=== PATIENT | female | born 1985 | race Caucasian/White ===

== ENCOUNTER → 2016-09-18 | Outpatient (CLI) | payer BC ==
[~2016-09-18] MED LIST: EPP3 IM; EPP3/2 IM; FERR1TAB13 PO; MISC-696; MTR600X PO; ONDA4TAB10 SL; OXYC-57 PO; PRENTAB26 PO; SIME80CH
== END | disposition home or self-care (01) ==
LOC: C.LAB1850 08:50
PROVIDERS: ATTEND Obstetrics & Gynecology
DX: O09.02 Supervision of pregnancy with history of infertility, second trimester (principal)

== ENCOUNTER → 2016-12-03 | Outpatient (CLI) | payer BC ==
[2016-12-03 11:53] LABS: MANUAL MICROSCOPIC REQUIRED? YES; URINE APPEARANCE CLEAR (CLEAR); URINE BILIRUBIN NEG (NEG); URINE COLOR YELLOW; URINE NITRITE NEG (NEG); URINE PH 5.5 (4.5-7.5); UROBILINOGEN NEG (NEG)
[2016-12-03 12:11] LABS: REVIEW REQ? NO
[2016-12-03 12:26] LABS: URINE BACTERIA 1+ (NEG); URINE RBC 0-4 /hpf (0-4)
[2016-12-03 13:57] LABS: HEMATOCRIT 30.4 % (37-47)
== END | disposition home or self-care (01) ==
LOC: C.LAB1850 08:56
PROVIDERS: ATTEND Obstetrics & Gynecology
DX: O34.219 Maternal care for unspecified type scar from previous cesarean delivery (principal); O09.03 Supervision of pregnancy with history of infertility, third trimester; O99.840 Bariatric surgery status complicating pregnancy, unspecified trimester

== ENCOUNTER 2016-12-16 18:58 | Observation (INO) | payer BC ==
[~2016-12-16] VITALS: Ht 162.6 cm; Wt 137.3 kg
[~2016-12-16 18:58] MED LIST changes: -EPP3/2 IM; -FERR1TAB13 PO; -MTR600X PO; -ONDA4TAB10 SL; -OXYC-57 PO; -SIME80CH
[2016-12-16 19:22] VITALS: TEMP 36.6; Ht 162.6 cm; Wt 137.3 kg
[2016-12-16] MEDS ORDERED: SODIUM CHLORIDE 0.9% 1000ML 2,000 ML IV STA (19:33)
[2016-12-16] MEDS ORDERED: EPP3/2 IM (19:35)
[2016-12-16] MEDS ORDERED: ONDANSETRON 8 MG/54 ML D5W IV STA (19:52)
[2016-12-16 20:28] LABS: HEMATOCRIT 31.5 % (37-47); MEAN CELL VOLUME 67.2 fL (80-100); MEAN CORPUSCULAR HEMOGLOBIN 21.5 pg (25-34); MEAN CORPUSCULAR HGB CONC 32.1 g/dl (32-36); MEAN PLATELET VOLUME 9.6 fL (7.4-10.4); PLATELET COUNT 319 K/uL (130-400); RED BLOOD COUNT 4.69 M/uL (4.2-5.4); WHITE BLOOD COUNT 13.07 K/uL (4.8-10.8)
[2016-12-16 20:44] LABS: ALT/SGPT 42 U/L (12-78); BLOOD UREA NITROGEN 5 mg/dl (7-18); BUN/CREATININE RATIO 7.7 (10-20); CALCIUM 8.8 mg/dl (8.5-10.1); CARBON DIOXIDE 19 mmol/L (21-32); CHLORIDE 106 mmol/L (98-107); GLUCOSE 93 mg/dl (70-99); POTASSIUM 2.9 mmol/L (3.5-5.1); SODIUM 136 mmol/L (136-145)
[2016-12-16 20:47] LABS: ALKALINE PHOSPHATASE 60 U/L (45-117); AST/SGOT 39 U/L (15-37); BASO % 0.2 %; BASO ABS # 0.02 K/uL (0-0.2); COMPLETE YES; EOS % 0.5 %; IG% 0.3 %; LYMPH % 22.8 %; LYMPH ABS # 2.98 K/uL (1.2-3.4); MICROCYTOSIS PRESENT; NEUT % 66.2 %
[2016-12-16 22:21] LABS: URINE APPEARANCE CLOUDY (CLEAR); URINE BILIRUBIN NEG (NEG); URINE COLOR DK YELLOW; URINE EPITHELIAL CELL AUTO >30 /lpf (0-5); URINE NITRITE NEG (NEG); URINE SPECIFIC GRAVITY 1.021 (1.000-1.030); UROBILINOGEN NEG (NEG)
[2016-12-16 22:25] LABS: MANUAL MICROSCOPIC REQUIRED? NO; REVIEW REQ? YES
[2016-12-16 22:35] LABS: URINE MUCUS PRESENT (NONE PRSENT)
[2016-12-16] MEDS ORDERED: CALCIUM CARBONATE 500 MG CHEWABLE PO STA (23:04)
[2016-12-17] MEDS ORDERED: POTASSIUM CHLORIDE 10 MEQ / 100ML WTR IV STA (00:16)
[2016-12-17] MEDS ORDERED: POTASSIUM CHLORIDE 10 MEQ TABCR PO STA (00:16)
[2016-12-17] MEDS ORDERED: ACETAMINOPHEN 500 MG TAB PO STA (00:18)
[2016-12-17 00:31] VITALS: BP 122/61; PULSE 88; O2SAT 98
[2016-12-17] MEDS ORDERED: LACTATED RINGER'S 1000ML 1,000 ML IV SCH (01:11)
[2016-12-17] MEDS ORDERED: ONDANSETRON INJ 2 MG/ML 2 ML VIAL IV PRN (01:15)
[2016-12-17] MEDS ORDERED: IV FLUIDS COMPLETED PRN (01:30)
--- NOTE | 2016-12-17 01:35 | EMERGENCY ROOM VISIT NOTE ---
History Report prepared by Esteban: Martha Chang Under the Supervision of: Dr. Carlos Hebert M.D. First contact with patient: 19:33 Chief Complaint: OTHER COMPLAINT Stated Complaint: DIARRHEA,DIZZINESS, PT IS 30 WEEKS History of Present Illness The patient is a 31 year old female who presents to the Emergency Room with complaints of persistent nausea, vomiting and diarrhea over the past 6 days. The patient is [address] Villaseñor - Obstetrics. The first two days of her symptoms, she had some abdominal pain which has since resolved. Se also complains of intermittent chills. She has not urinated in about 24 hours. She did notify her OB office of her symptoms. She has not taken any medications for her symptoms. Denies any vaginal bleeding or discharge. Pt denies LOC, headache, fevers, diaphoresis, visual changes, neck pain, chest pain , breathing difficulties, back pain, melena, hematochezia, urinary symptoms, numbness, weakness, lymphadenopathy, rash, or other complaints. Source of History: patient Onset: the past 6 days Position: other (GI) Quality: other (N/V/D) Timing: other (persistent) Associated Symptoms: + abdominal pain (resolved), + chills Review of Systems See HPI for pertinent positives and negatives. A total of ten systems were reviewed and were otherwise negative. Past Medical & Surgical Medical Problems: (1) 36 weeks gestation of (2) Bronchitis (3) Dyspnea (4) First-trimester bleeding (5) low heart rate in office (6) Ulcer Surgical Problems: (1) Cholecystectomy planned (2) H/O gastric bypass Family History Cancer Diabetes mellitus Hypertension Social History Smoking Status: Former Smoker Alcohol Use: none Marital Status: Housing Status: lives with significant other Occupation Status: employed Current/Historical Medications Scheduled Epinephrine (Epipen), 0.3 MG IM UD Multivit/Min/Iron/Fol Ac/Pren ( Vitamin), 1 TAB PO DAILY Allergies Coded Allergies: Latex1 -Allergic Contact Dermititis (Unverified Allergy, Mild, 12/16/16) Physical Exam Vital Signs Date Time Temp Pulse Resp B/P Pulse Ox O2 Delivery O2 Flow Rate FiO2 12/17/16 00:31 88 16 122/61 98 Room Air 12/16/16 22:21 83 20 135/82 97 Room Air 12/16/16 20:44 82 12/16/16 20:41 88 20 141/84 97 Room Air 12/16/16 19:22 36.6 106 20 137/88 97 Room Air Physical Exam GENERAL: Awake, alert, mildly ill appearing, no acute distress HEAD: Normocephalic, atraumatic. No edema. EYES: Normal conjunctiva. Sclera non-icteric. OROPHARYNX: Lips, tongue, and mucosa unremarkable. No erythema or exudate. NECK: Supple. No nuchal rigidity. FROM. No adenopathy. RESPIRATORY: CTA bilaterally. No wheezes rales or rhonchi. CARDIAC: Borderline tachycardic rate, normal rhythm. ABDOMEN: Soft, non distended. No tenderness to palpation. No rebound or guarding. MUSCULOSKELETAL: Atraumatic. No edema. NEURO: Normal sensorium. SKIN: No rash or jaundice noted Medical Decision & Procedures Laboratory Results 12/16/16 20:10 Red Blood Count 4.69, Mean Corpuscular Volume 67.2, Mean Corpuscular Hemoglobin 21.5, Mean Corpuscular Hemoglobin Concent 32.1, Mean Platelet Volume 9.6, Neutrophils (%) (Auto) 66.2, Lymphocytes (%) (Auto) 22.8, Monocytes (%) (Auto) 10.0, Eosinophils (%) (Auto) 0.5, Basophils (%) (Auto) 0.2, Neutrophils # (Auto ) 8.65, Lymphocytes # (Auto) 2.98, Monocytes # (Auto) 1.31, Eosinophils # (Auto ) 0.07, Basophils # (Auto) 0.02 12/16/16 20:10 Test 12/16/16 20:10 12/16/16 21:50 White Blood Count 13.07 K/uL (4.8-10.8) Red Blood Count 4.69 M/uL (4.2-5.4) Hemoglobin 10.1 g/dL (12.0-16.0) Hematocrit 31.5 % (37-47) Mean Corpuscular Volume 67.2 fL (80-100) Mean Corpuscular Hemoglobin 21.5 pg (25-34) Mean Corpuscular Hemoglobin Concent 32.1 g/dl (32-36) Platelet Count 319 K/uL (130-400) Mean Platelet Volume 9.6 fL (7.4-10.4) Neutrophils (%) (Auto) 66.2 % Lymphocytes (%) (Auto) 22.8 % Monocytes (%) (Auto) 10.0 % Eosinophils (%) (Auto) 0.5 % Basophils (%) (Auto) 0.2 % Neutrophils # (Auto) 8.65 K/uL (1.4-6.5) Lymphocytes # (Auto) 2.98 K/uL (1.2-3.4) Monocytes # (Auto) 1.31 K/uL (0.11-0.59) Eosinophils # (Auto) 0.07 K/uL (0-0.5) Basophils # (Auto) 0.02 K/uL (0-0.2) RDW Standard Deviation 39.7 fL (36.4-46.3) RDW Coefficient of Variation 16.1 % (11.5-14.5) Immature Granulocyte % (Auto) 0.3 % Immature Granulocyte # (Auto) 0.04 K/uL (0.00-0.02) Microcytosis PRESENT Anion Gap 11.0 mmol/L (3-11) Est Creatinine Clear Calc Drug Dose 179.9 ml/min Estimated GFR () 139.8 Estimated GFR (Non- 120.6 BUN/Creatinine Ratio 7.7 (10-20) Calcium Level 8.8 mg/dl (8.5-10.1) Total Bilirubin 0.3 mg/dl (0.2-1) Direct Bilirubin < 0.1 mg/dl (0-0.2) Aspartate Amino Transf (AST/SGOT) 39 U/L (15-37) Alanine Aminotransferase (ALT/SGPT) 42 U/L (12-78) Alkaline Phosphatase 60 U/L (45-117) Total Protein 7.6 gm/dl (6.4-8.2) Albumin 2.7 gm/dl (3.4-5.0) Lipase 139 U/L (73-393) Urine Color DK YELLOW Urine Appearance CLOUDY (CLEAR) Urine pH 6.0 (4.5-7.5) Urine Specific [place] 1.021 (1.000-1.030) Urine Protein 1+ (NEG) Urine Glucose (UA) NEG (NEG) Urine Ketones NEG (NEG) Urine Occult Blood NEG (NEG) Urine Nitrite NEG (NEG) Urine Bilirubin NEG (NEG) Urine Urobilinogen NEG (NEG) Urine Leukocyte Esterase SMALL (NEG) Urine WBC (Auto) 10-30 /hpf (0-5) Urine RBC (Auto) 0-4 /hpf (0-4) Urine Hyaline Casts (Auto) 0 /lpf (0-5) Urine Epithelial Cells (Auto) >30 /lpf (0-5) Urine Bacteria (Auto) 1+ (NEG) Urine Pathogenic Casts /lpf (0) Urine Mucus PRESENT (NONE PRSENT) Date/Time Source Procedure Growth Status 12/16/16 23:45 Stool C.difficile Toxin B Gene (PCR) - Final No C. difficile toxin B gene detected Complete Laboratory results reviewed by me Medications Administered Medications (Trade) Dose Ordered Sig/Melissa Route Start Time Stop Time Status Last Admin Dose Admin Sodium Chloride (Nss 1000ml) 2,000 ml @ 999 mls/hr Q2H1M STAT IV 12/16/16 19:33 12/16/16 21:33 DC 12/16/16 20:28 999 MLS/HR Ondansetron HCl (Zofran 8mg Iv) 8 mg NOW STAT IV 12/16/16 19:52 12/16/16 19:53 DC 12/16/16 20:28 8 MG Calcium Carbonate (Tums Chew Tab) 1,500 mg NOW STAT PO 12/16/16 23:04 12/16/16 23:05 DC 12/16/16 23:19 1,500 MG Potassium Chloride (Klor-Con M10) 40 meq NOW STAT PO 12/17/16 00:16 12/17/16 00:19 DC 12/17/16 00:29 40 MEQ Potassium Chloride (Kcl 10 Meq / Wtr) 10 meq NOW STAT IV 12/17/16 00:16 12/17/16 00:19 DC 12/17/16 00:29 10 MEQ Acetaminophen (Tylenol Tab) 1,000 mg NOW STAT PO 12/17/16 00:18 12/17/16 00:24 DC 12/17/16 00:30 1,000 MG ED Course 1932: Ordered NSS 2000 ml @ 999 mls/hr IV. 1950: The patient was evaluated in room B11A. A complete history and physical exam was performed. Ordered Zofran 8 mg IV. 2057: I reassessed the patient. She was feeling better. heart tones were 170. 2148: I reassessed the patient. She was doing well. 2304: Ordered Calcium Carbonate 1500 mg PO. 0016: I discussed the case with Dr. Juan Jose ZAPATA Obstetrics. He wants the patient to be observed in Labor and Delivery. Ordered Potassium Chloride 10 meq IV, Potassium Chloride 40 meq PO. 0018: Ordered Tylenol Tab 1000 mg PO 0020: Upon reexamination, the patient was feeling better. I discussed the test results and treatment plan with the patient. She will be observed in L&D. Medical Decision Triage Nursing notes reviewed. The patient's presentation and history were concerning for nausea vomiting and diarrhea with . Etiologies such as gastroenteritis, electrolyte abnormality, C. difficile infection, food borne illness, infections, obstruction, pancreatitis, appendicitis, diverticulitis, inflammatory bowel disease, GI bleed, biliary pathology, toxicologic, complication of , as well as others were entertained. The patient was evaluated. Clinically she looked dry. An IV was established. She was given 2 L of IV normal saline. The patient had a slight leukocytosis and CBC. She also had a mild anemia. Her urinalysis did show some bacteria but mainly epithelial cells. The patient had hypokalemia. She was given 40 mg of oral potassium as well as 10 mEq IV. Chemistry panel LFTs and lipase were otherwise unremarkable. The patient was reassessed. The vomiting has stopped however she had at least 6 more episodes of diarrhea. She still felt dehydrated. Consultation was made with Dr. Ingram of [facility]IDE. The patient was taken to the OB for for further management, evaluation and hydration. The chart was completed utilizing [employer] Speech voice recognition software. Grammatical errors, random word insertions, pronoun errors, and incomplete sentences are an occasional consequence of this system due to software limitations, ambient noise, and hardware issues. Any formal questions or concerns about the content, text, or information contained within the body of this dictation should be directly addressed to the physician for clarification. Consults Time Called: 12 Consulting Physician: Dr. Juan Jose ZAPATA Obstetrics Returned Call: 15 I discussed the case with him. He wants the patient to be observed in Labor and Delivery. Impression Primary Impression: Nausea, vomiting and diarrhea Additional Impression: Dehydration Scribe Attestation The scribe's documentation has been prepared under my direction and personally reviewed by me in its entirety. I confirm that the note above accurately reflects all work, treatment, procedures, and medical decision making performed by me. Departure Information Dispostion Being Evaluated By Hospitalist Referrals Heather Dempsey DO (PCP) Patient Instructions My [facility] Problem Qualifiers
[2016-12-17] MEDS ORDERED: ONDA4TAB10 SL (07:23)
--- NOTE | 2016-12-17 07:24 | Discharge Instructions ---
Discharge Instructions Date of Service Dec 17, 2016. Admission Reason for Admission: Diarrhea, Dizziness, 30 Weeks Discharge Discharge Diagnosis / Problem: viral gastroenteritis Discharge Goals Goal(s): Continuing OB care Activity Recommendations Activity Limitations: per Instructions/Follow-up section . Instructions / Follow-Up Instructions / Follow-Up ACTIVITY RECOMMENDATIONS: See Labor Sheet. SPECIAL CARE INSTRUCTIONS: Call Doctor if: * Regular contractions every 5 minutes or greater than contractions in one hour. * Bleeding * Water breaks or is leaking * Decreased movement * Fever >100.4 degrees F * Pain not relieved by routine measures or pain medication ordered. FOLLOW UP VISIT: Return to Labor and Delivery on for /call for appointment time . Follow-up Visit with: When: Current Hospital Diet Patient's current hospital diet: Discharge Diet Recommended Diet: Regular OB Diet Pending Studies Studies pending at discharge: no Medical Emergencies . Who to Call and When: Medical Emergencies: If at any time you feel your situation is an emergency, please call 911 immediately. . Non-Emergent Contact Non-Emergency issues call your: Primary Care Provider . . "Provider Documentation" section prepared by Carlos Ingram. VTE Core Measure Inpt VTE Proph given/why not?: Treatment not indicated
--- NOTE | 2016-12-21 10:24 | DISCHARGE SUMMARY ---
Daphne was initially seen in the Emergency Room on 12/16/2016. She was 30 weeks and had severe diarrhea. She was hydrated and observed there and given antiemetics for nausea. She was then sent up to labor and delivery for monitoring. During her stay for six hours she was monitored. There were no significant contractions. She was given IV fluids and further antiemetics. By the morning of she met discharge criteria, specifically her diarrhea had improved, she felt hydrated and no lightheaded. The patient was sent home with an oral prescription for Zofran and told to followup in the office within a week with the diagnosis of 30 weeks gestation and likely gastroenteritis.
== END 2016-12-17 07:45 | disposition home or self-care (01) ==
LOC: C.EDB 18:59 → C.LD 12-17 00:53
PROVIDERS: ADMIT Obstetrics & Gynecology; ATTEND Obstetrics & Gynecology
DX: O99.283 Endocrine, nutritional and metabolic diseases complicating pregnancy, third trimester (principal); E86.0 Dehydration; O99.89 Other specified diseases and conditions complicating pregnancy, childbirth and the puerperium; K52.9 Noninfective gastroenteritis and colitis, unspecified; R42 Dizziness and giddiness; Z3A.30 30 weeks gestation of pregnancy; Z98.84 Bariatric surgery status; Z87.891 Personal history of nicotine dependence; Z83.3 Family history of diabetes mellitus; Z82.49 Family history of ischemic heart disease and other diseases of the circulatory system

== ENCOUNTER → 2016-12-23 | Outpatient (CLI) | payer BC ==
[~2016-12-23] MED LIST changes: -EPP3 IM; +EPP3/2 IM; +FERR1TAB13 PO; -MISC-696; +MTR600X PO; +ONDA4TAB10 SL; +OXYC-57 PO; +SIME80CH
[2016-12-23 17:00] LABS: PATIENT HEIGHT 162.6 cm
[2016-12-23 17:22] LABS: HEMATOCRIT 29.2 % (37-47); MEAN CELL VOLUME 67.1 fL (80-100); MEAN CORPUSCULAR HEMOGLOBIN 21.1 pg (25-34); MEAN CORPUSCULAR HGB CONC 31.5 g/dl (32-36); MEAN PLATELET VOLUME 10.2 fL (7.4-10.4); PLATELET COUNT 312 K/uL (130-400); RED BLOOD COUNT 4.35 M/uL (4.2-5.4); WHITE BLOOD COUNT 11.71 K/uL (4.8-10.8)
[2016-12-23 17:50] LABS: URINE TOTAL PROTEIN 39.5 mg/dl (0-11.9)
[2016-12-23 17:51] LABS: URIC ACID 4.6 mg/dl (2.6-7.2)
[2016-12-23 18:58] LABS: CREATININE 0.46 mg/dl (0.6-1.2); URINE TOTAL PROTEIN CALC 454.3 mg/24 hr (0-149.1)
== END | disposition home or self-care (01) ==
LOC: C.LAB1850 16:12
PROVIDERS: ATTEND Obstetrics & Gynecology
DX: O26.93 Pregnancy related conditions, unspecified, third trimester (principal)

== ENCOUNTER 2016-12-27 17:29 | Outpatient (CLI) | payer BC ==
[~2016-12-27] VITALS: Ht 162.6 cm; Wt 150.0 kg
[~2016-12-27 17:29] MED LIST changes: -FERR1TAB13 PO; -MTR600X PO; -OXYC-57 PO; -SIME80CH
[2016-12-27] MEDS ORDERED: SODIUM CHLORIDE 0.9% 1000ML 1,000 ML IV SCH (17:55)
[2016-12-27] MEDS ORDERED: IV FLUIDS COMPLETED PRN (18:15)
[2016-12-27 18:24] LABS: MEAN CORPUSCULAR HEMOGLOBIN 21.1 pg (25-34); MEAN PLATELET VOLUME 9.3 fL (7.4-10.4); PLATELET COUNT 256 K/uL (130-400); RED BLOOD COUNT 3.88 M/uL (4.2-5.4); WHITE BLOOD COUNT 15.12 K/uL (4.8-10.8)
[2016-12-27 18:29] LABS: URINE PROTIEN/CREAT RATIO 0.3 (0-0.2); URINE TOTAL PROTEIN 10.2 mg/dl (0-11.9)
[2016-12-27 18:44] LABS: BASO % 0.1 %; BASO ABS # 0.01 K/uL (0-0.2); COMPLETE YES; EOS % 0.3 %; IG% 0.3 %; LYMPH ABS # 1.81 K/uL (1.2-3.4); MEAN CORPUSCULAR HGB CONC 31.5 g/dl (32-36); MICROCYTOSIS PRESENT; MONO % 8.8 %; NEUT % 78.5 %; OVALOCYTES 1+; POLYCHROMASIA 1+
[2016-12-27 19:05] LABS: ALKALINE PHOSPHATASE 58 U/L (45-117); ALT/SGPT 37 U/L (12-78); AMYLASE 54 U/L (25-115); AST/SGOT 26 U/L (15-37); URIC ACID 3.7 mg/dl (2.6-7.2)
[2016-12-27 19:05] LABS: URINE APPEARANCE CLEAR (CLEAR); URINE BILIRUBIN NEG (NEG); URINE COLOR YELLOW; URINE EPITHELIAL CELL AUTO >30 /lpf (0-5); URINE NITRITE NEG (NEG); URINE PH 6.5 (4.5-7.5); URINE SPECIFIC GRAVITY 1.009 (1.000-1.030); UROBILINOGEN NEG (NEG)
[2016-12-27 19:06] LABS: MANUAL MICROSCOPIC REQUIRED? NO; REVIEW REQ? YES
[2016-12-27 19:27] VITALS: Ht 162.6 cm; Wt 150.0 kg
--- NOTE | 2016-12-27 19:44 | DIAGNOSTIC IMAGING REPORT ---
ULTRASOUND RIGHT UPPER QUADRANT ABDOMEN CLINICAL HISTORY: Right upper quadrant abdominal pain. COMPARISON STUDY: Abdominal CT dated 10/27/2010. TECHNIQUE: Real-time, grayscale, and color flow sonography of the right upper quadrant of the abdomen was performed. Images are reviewed in the transverse and longitudinal planes. The examination is degraded by large body habitus. FINDINGS: Liver: The liver is normal in size and slightly heterogeneous in echotexture. There is no intrahepatic biliary ductal dilatation. The main portal vein is patent. Gallbladder: The gallbladder is surgically absent. The common bile duct measures up to 0.6 cm in diameter. Pancreas: Visualized portions of the pancreatic head and body are normal in appearance. The splenic vein is patent. Right kidney: Survey images of the right kidney demonstrate normal size and echotexture. There is no hydronephrosis. Ascites: None. IMPRESSION: No acute sonographic abnormality is identified in the right upper quadrant noting status post cholecystectomy. Electronically signed by: Constantine Ram M.D. 12/27/2016 7:42 PM Dictated Date/Time: 12/27/2016 7:41 PM
== END 2016-12-27 20:20 | disposition home or self-care (01) ==
LOC: C.LD 17:29 → C.OPB 17:29
PROVIDERS: ATTEND Obstetrics & Gynecology
DX: O99.89 Other specified diseases and conditions complicating pregnancy, childbirth and the puerperium (principal); R10.11 Right upper quadrant pain; R94.5 Abnormal results of liver function studies; O99.213 Obesity complicating pregnancy, third trimester; Z3A.31 31 weeks gestation of pregnancy; Z90.49 Acquired absence of other specified parts of digestive tract; Z98.84 Bariatric surgery status

== ENCOUNTER → 2016-12-31 | Outpatient (CLI) | payer BC ==
[~2016-12-31] MED LIST changes: +FERR1TAB13 PO; +MTR600X PO; +OXYC-57 PO; +SIME80CH
[2016-12-31 09:46] LABS: HEMATOCRIT 27.7 % (37-47); MEAN CELL VOLUME 69.9 fL (80-100); MEAN CORPUSCULAR HEMOGLOBIN 20.7 pg (25-34); MEAN CORPUSCULAR HGB CONC 29.6 g/dl (32-36); MEAN PLATELET VOLUME 9.7 fL (7.4-10.4); PLATELET COUNT 270 K/uL (130-400); RED BLOOD COUNT 3.96 M/uL (4.2-5.4); WHITE BLOOD COUNT 10.56 K/uL (4.8-10.8)
[2016-12-31 10:48] LABS: ALT/SGPT 28 U/L (12-78); AST/SGOT 18 U/L (15-37); BLOOD UREA NITROGEN 4 mg/dl (7-18); CALCIUM 8.4 mg/dl (8.5-10.1); CARBON DIOXIDE 23 mmol/L (21-32); CHLORIDE 108 mmol/L (98-107); CREATININE 0.44 mg/dl (0.60-1.20); GLUCOSE 104 mg/dl (70-99); POTASSIUM 3.3 mmol/L (3.5-5.1); SODIUM 141 mmol/L (136-145); URIC ACID 3.6 mg/dl (2.6-7.2)
[2016-12-31 10:50] LABS: ALB/GLOB RATIO 0.5 (0.9-2); ALKALINE PHOSPHATASE 55 U/L (45-117)
== END | disposition home or self-care (01) ==
LOC: C.LAB1850 08:55
PROVIDERS: ATTEND Obstetrics & Gynecology
DX: O12.10 Gestational proteinuria, unspecified trimester (principal)

== ENCOUNTER → 2017-01-21 | Outpatient (CLI) | payer BC ==
[2017-01-21 09:45] LABS: HEMATOCRIT 29.1 % (37-47); MEAN CELL VOLUME 69.3 fL (80-100); MEAN CORPUSCULAR HGB CONC 30.2 g/dl (32-36); MEAN PLATELET VOLUME 10.2 fL (7.4-10.4); PLATELET COUNT 296 K/uL (130-400); WHITE BLOOD COUNT 10.35 K/uL (4.8-10.8)
== END | disposition home or self-care (01) ==
LOC: C.LAB1850 08:42
PROVIDERS: ATTEND Obstetrics & Gynecology
DX: O26.619 Liver and biliary tract disorders in pregnancy, unspecified trimester (principal)

== ENCOUNTER 2017-01-25 05:30 | Inpatient (IN) | payer BC ==
--- NOTE | 2017-01-23 11:23 | HISTORY & PHYSICAL EXAMINATION ---
DATE OF ADMISSION: 01/25/2017 PREOPERATIVE DIAGNOSES: 1. Intrauterine at 36 and 0/7 weeks. 2. Complicated medical issues concerning . 3. Morbid obesity 4. History of previous section. 5. Desires surgical sterilization. HISTORY OF PRESENT ILLNESS: The patient is a 31-year-old 3, para 1-0-1-1 with an EDC of 02/22/2017. This is based on last menstrual period consistent with a first trimester ultrasound. The patient presents to labor and delivery today for repeat section and tubal ligation at 36 weeks. Her first was delivered at 39 weeks. It was a . That was for breech presentation. That was complicated in the postop period with an exploratory laparotomy above her umbilicus for an incarcerated umbilical hernia. 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 She recovered from that well. She is now again. This has had many complications. It has been complicated by morbid obesity with minimal weight gain in this . It has been complicated by gestational diabetes for which the patient has been reluctant to check her blood sugars because she does not like sticking herself. Therefore, it is likely that this has been a fairly uncontrolled diabetic, although she notes that she has been monitoring her diet. She has had essentially no growth ultrasounds. This gestational diabetes was detected at her 28-week 2-hour glucose tolerance test where she failed just 1 of the values. The patient really did not even see dietary until 34 and 3/7 weeks. Apparently, she has been diagnosed with gestational diabetes in her previous but wanted to test this time again. The patient approximately 3 weeks ago was admitted to the hospital with an episode of nausea, vomiting and dehydration. This occurred after she ate at a [place]. She was found to have elevated liver enzymes and elevated bile salts at that time. Her pressures were a little elevated at that hospitalization, she eventually turned in a 24-hour urine unrevealing 454 mg of protein in 24-hour collection. She was seen by GI because she had chronic diarrhea with no discernible diagnosis after an extensive workup. Her liver function tests resolved back to normal; however, her bile salts remained elevated. Given this, there was a concern for cholestasis of and so she was sent to [facility] for evaluation. The bottom line on that was that we had no other explanation for the elevated bile salts, but for cholestasis of , although this was a most unusual presentation as the patient had no itching at all. She was recommended to take Uristat and [facility] wanted her to see hepatology. That appointment was scheduled quite quickly and she was seen the following Wednesday. She was evaluated by hepatology at the [facility] with their results that there was no evidence of chronic liver disease or cholestasis of . They suspected that her elevated liver enzymes were actually related to the acute gastroenteritis or may have been related to the use of Augmentin in mid October. They then contacted [facility] and conversation was had with [facility] and us as providing doctors. They noted that they were now all skeptical of the diagnosis of cholestasis of and they did not feel like a delivery at 36 weeks was indicated for that and that the risk of prematurity at 36 weeks was likely greater than the risks associated with cholestasis of . However, [facility] did state that it would not be totally unreasonable to do the repeat section at 36 weeks given all the complications with this lady's . The 24-hour urine was done after a visit on 12/22/2016 revealing 2+ protein in the blood with a determination of protein of 400+mg in her urine. Given that she has poorly controlled gestational diabetes that she either has gestational proteinuria or a questionable early preeclampsia without severe features, that she is morbidly obese, that we are not sure about what is going on with the bile salts, but we do have the reassurance from [facility] and liver. We discussed this in detail with the patient. The patient had done her own research regarding cholestasis of and was quite concerned about the possibility of stillborn. The patient had been having twice weekly NSTs, PATRICE and S/D ratios all being very reassuring. After discussing with her family she has decided that she would like to proceed with section at 36 weeks. She understands that there is a risk of prematurity associated with a delivery at 36 weeks which might necessitate transfer of the baby to a tertiary care center should it need further evaluation and treatment. The patient understands that [facility] and liver hepatology have told us that we can delay the section until a later date. Additionally, the patient was concerned about the original 36 and 0/7 weeks date because her support people in her family were going to be in [place] so we therefore offered that we could move it back but she has decided to proceed with delivery on 36 and 0/7 weeks and so we will proceed with that. 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 She also has a history of a miscarriage in 2013. ALLERGIES: LATEX, POLLEN. No known drug allergies. MEDICATIONS: vitamin. PAST MEDICAL HISTORY: The patient is morbidly obese. She weighs 300 pounds. She has a history of gastric bypass, but she denies thyroid disease, asthma, heart disease, heart murmur, diabetes, kidney or liver problems. PAST SURGICAL HISTORY: Include gastric bypass, repair of a upper abdominal ventral wall hernia with mesh, cholecystectomy and . SOCIAL HISTORY: She denies tobacco, alcohol or drug use. PHYSICAL EXAMINATION: GENERAL: On physical examination, in general this is a well-developed, well-nourished, obese white female in no acute distress. VITAL SIGNS: Blood pressure 110/70, weight 301 pounds. NECK: Supple without thyromegaly or lymphadenopathy. CHEST: Clear to auscultation bilaterally. CARDIOVASCULAR: Regular rate and rhythm without murmurs, gallops or rubs. BACK: Without costovertebral angle tenderness. ABDOMEN: Soft, gravid, and obese. EXTREMITIES: Show trace edema but are otherwise benign. PELVIC EXAMINATION: Deferred. LABORATORY DATA: Her hemoglobin is 8.8. Currently, she is O positive, antibody negative, rubella immune, RPR nonreactive, hepatitis B negative, HIV negative, chlamydia and gonorrhea cultures negative. Quad screen negative. She is group B positive in her urine. ASSESSMENT: Daphne is a 3, para 1-0-1-1 with an intrauterine at 36 and 0/7 weeks with a complicated by many issues including previous section for breech presentation, morbid obesity, likely poorly controlled gestational diabetes, 24-hour urine with greater than 400 mg of protein and elevated bile salts of unknown cause. After a long discussion between our consultants including [facility], hepatology at [facility], the patient herself and us the patient desires to proceed with section at 36 weeks which maternal medicine said is not unreasonable. We did offer to push it back to 39 completed weeks or at least 1 week until her family returned from [place] and she has declined this. It was clearly explained to the patient the risk of prematurity and that the baby may need to be transferred to tertiary care center should it develop issues that cannot be taken care of here. She expresses understanding of this. She would prefer to have the baby delivered, so that if this is a strange presentation of cholestasis of the risk of stillbirth is averted. She has had normal and reassuring testing throughout. The risks of the procedure were discussed with the patient including the risks of anesthesia, bleeding requiring transfusion, infection, poor wound healing, damage to surrounding structures including bowel, bladder, vessels, nerves and ureters with need for further surgery, hospitalization or intervention. The patient understands the risk of any surgery including heart attack, blood clot, stroke or . Two special things associated with this surgery: 1. Is her morbid obesity and significantly increased risk of infection. 2. Her hemoglobin of 8.8. It appears Linda has been living at this hemoglobin for quite some time. She understands that there is probably about 50% chance that she is going to need a blood transfusion associated with this surgery. She is willing to accept this risk. She has declined preoperative transfusion. Additionally, the patient desires tubal sterilization. The other options for control were discussed with the patient including barriers, hormones, long-term reversible contraceptive options as well as vasectomy. She desires permanent surgical sterilization. She understands that there is a risk of regret associated with sterilization as well as the risk of ectopic should the sterilization procedure fail. She signed consent for this as well. Surgery is planned for January 25. LUCRETIA
[~2017-01-25] VITALS: Ht 162.6 cm; Wt 136.8 kg
[2017-01-25] VITALS (14 sets, daily range): BP systolic 107–112; BP diastolic 65–73; PULSE 70–91; TEMP 36.4–37.1; O2SAT 97–99; Ht 162.6 cm; Wt 136.8 kg
[~2017-01-25 05:30] MED LIST changes: -FERR1TAB13 PO; -MTR600X PO; -OXYC-57 PO; -SIME80CH
[2017-01-25] MEDS ORDERED: LACTATED RINGER'S 1000ML 1,000 ML IV SCH ×3 (05:32→15:06)
[2017-01-25] MEDS ORDERED: CEFAZOLIN IV 3,000 MG in DEXTROSE 5% 50ML IV SCH (06:00)
[2017-01-25] MEDS ORDERED: CITRIC ACID/SODIUM CITRATE 15 ML UDC PO SCH (06:00)
[2017-01-25] MEDS ORDERED: FERR1TAB13 PO (06:04)
[2017-01-25] MEDS ORDERED: SIME80CH (06:04)
[2017-01-25 06:23] LABS: HEMATOCRIT 28.4 % (37-47); MEAN CELL VOLUME 68.3 fL (80-100); MEAN CORPUSCULAR HEMOGLOBIN 20.2 pg (25-34); MEAN PLATELET VOLUME 9.7 fL (7.4-10.4); PLATELET COUNT 299 K/uL (130-400); RED BLOOD COUNT 4.16 M/uL (4.2-5.4); WHITE BLOOD COUNT 10.52 K/uL (4.8-10.8)
[2017-01-25 06:30] LABS: MEAN CORPUSCULAR HGB CONC 29.6 g/dl (32-36)
[2017-01-25] MEDS ORDERED: OXYTOCIN INJ 10 UNITS/ML VIAL ONE (06:50)
[2017-01-25] MEDS ORDERED: PHENYLEPHRINE HCL INJ 10 MG/ML VIAL ONE (06:50)
[2017-01-25] MEDS ORDERED: EpHEDrine SULFATE INJ 50 MG/ML AMP ONE (06:50)
[2017-01-25] MEDS ORDERED: ONDANSETRON INJ 2 MG/ML 2 ML VIAL ONE ×2 (06:50→08:39)
[2017-01-25] MEDS ORDERED: FENTANYL CITRATE INJ 50 MCG/1 ML 2 ML VIAL ONE (06:50)
[2017-01-25] MEDS ORDERED: MoRPHine SULFATE PF 1 MG/ML 10 ML AMP/VIAL ONE (06:50)
--- NOTE | 2017-01-25 07:13 | History & Physical Bridge Note ---
H&P Re-Evaluation Bridge Note: I have examined the patient, reviewed the History & Physical and in the interval since the performance of the History & Physical I have noted the following changes of clinical significance: Patient again expresses understanding of the risk of prematurity and need for transfer. She feels this is outweighed by the potential risk of stillbirth in her current situation, despite recommendations of MFM and hepatology. No changes in her health since Wednesday.
[2017-01-25 07:29] LABS: BASO % 0.2 %; BASO ABS # 0.02 K/uL (0-0.2); COMPLETE YES; EOS % 0.5 %; IG% 0.4 %; LYMPH % 27.9 %; LYMPH ABS # 2.94 K/uL (1.2-3.4); MICROCYTOSIS PRESENT; MONO % 8.5 %; NEUT % 62.5 %; OVALOCYTES 1+
[2017-01-25] MEDS ORDERED: OXYTOCIN INJ 20 UNITS in LACTATED RINGER'S 1000ML 1,000 ML IV SCH (08:35)
[2017-01-25] MEDS ORDERED: DEXAMETHASONE SOD INJ 4 MG/ML VIAL ONE (08:42)
--- NOTE | 2017-01-25 08:43 | [facility] Post Operative Brief Note ---
Immediate Operative Summary Operative Date January 25, 2017. Pre-Operative Diagnosis 1. Intrauterine at 36 and 0/7 weeks 2. Complicated medical issues concerning 3. Morbid obesity 4. History of previous section 5. Desires surgical sterilization Post-Operative Diagnosis same Procedure(s) Performed Low transverse section delivery for viable female at 0759 Bilateral tub[address] ligation Surgeon Dr Iza Villaseñor Test Designer Surgeon(s) Dr Walter Hou and Dr Richa Manuel Estimated Blood Loss 600 cc Findings Delivered a viable female , APGARS 7,8. Weight 5 lbs 13oz. Normal uterus , fallopian tubes and ovaries bilaterally Specimens cord blood portion of umbilical cord for cord blood gases placenta portions of right and left fallopian tubes Drains reyes to gravity Anesthesia spinal Complication(s) None Disposition L&D
[2017-01-25] MEDS ORDERED: HYDROCORTISONE ACETATE 25 MG SUPP PR PRN (08:45)
[2017-01-25] MEDS ORDERED: BENZOCAINE 20% AER SPR 82.5 GM CAN EXT PRN (08:45)
[2017-01-25] MEDS ORDERED: MAGNESIUM HYDROXIDE SUSP 30 ML UDC PO PRN (08:45)
[2017-01-25] MEDS ORDERED: SUPERCREAM 0.870 % 15GM JAR EXT PRN (08:45)
[2017-01-25] MEDS ORDERED: LANOLIN OINT EXT PRN ×2 (08:45)
[2017-01-25] MEDS ORDERED: DIPHTHERIA/TETANUS/PERTUSSIS 0.5 ML SYR/VIAL IM. ONE (08:45)
[2017-01-25] MEDS ORDERED: SENNA 8.6 MG TAB PO PRN (08:45)
[2017-01-25] MEDS ORDERED: SODIUM CHLORIDE 0.9% 1000ML 1,000 ML IV PRN (08:54)
[2017-01-25] MEDS ORDERED: NALOXONE HCL INJ 0.08 MG in SYRINGE 1.8 ML IV PRN (08:54)
[2017-01-25] MEDS ORDERED: LACTATED RINGER'S 1000ML 500 ML IV PRN (08:54)
--- NOTE | 2017-01-25 08:58 | Anesthesiology Progress Note ---
Anesthesia Post Op Note Date & Time January 25, 2017 at 08:55 Notes Mental Status: alert / awake / arousable, participated in evaluation Pt Amnestic to Procedure: No (recall as expected) Nausea / Vomiting: adequately controlled Pain: adequately controlled Airway Patency, RR, SpO2: stable & adequate BP & HR: stable & adequate Hydration State: stable & adequate Neuraxial Anesthesia: was administered, sensory block is resolving Anesthetic Complications: no major complications apparent Pt had C/S and tubal under spinal. Her anesthetic course was unremarkable. She says she feels a little dizzy and tired. This may be related to anemia as she was quite anemic to start (Hgb 8.4) and lost an estimated 600 mL blood. I spoke to Dr. Villaseñor. We'll check a CBC and transfuse if necessary. Vitals have been stable. Post-op vitals: BP 141/76, HR 93, RR 16, SpO2 100% on RA, T 36.5.
[2017-01-25] MEDS ORDERED: MEPERIDINE HCL 25 MG/ML CARP IV PRN (09:00)
[2017-01-25] MEDS ORDERED: MoRPHine SULFATE PF 1 MG/ML 10 ML AMP/VIAL EPI PRN (09:00)
[2017-01-25] MEDS ORDERED: EpHEDrine SULFATE INJ 50 MG/ML AMP IV PRN (09:00)
[2017-01-25] MEDS ORDERED: PROMETHAZINE HCL INJ 25 MG in SODIUM CHLORIDE 0.9% 50ML 50 ML IV PRN (09:00)
[2017-01-25] MEDS ORDERED: MoRPHine SULFATE 2 MG/ML CARP IV PRN (09:00)
[2017-01-25] MEDS ORDERED: NO NARCOTICS OR SEDATIVES SCH (09:00)
[2017-01-25] MEDS ORDERED: KETOROLAC TROMETHAMINE 30 MG/ML VIAL IV. PRN (09:00)
[2017-01-25] MEDS ORDERED: NALOXONE HCL 0.4 MG/1 ML VIAL/CARP IV PRN (09:00)
[2017-01-25] MEDS ORDERED: DiphenhydrAMINE HCL 50 MG/ML VIAL IV PRN (09:00)
[2017-01-25] MEDS ORDERED: ONDANSETRON INJ 2 MG/ML 2 ML VIAL IV PRN (09:00)
[2017-01-25] MEDS ORDERED: NALBUPHINE HCL INJ 10 MG/ML AMP IV PRN (09:00)
[2017-01-25 09:30] LABS: HEMATOCRIT 27.2 % (37-47)
--- NOTE | 2017-01-25 09:35 | OPERATIVE REPORT ---
DATE OF OPERATION: 01/25/2017 PREOPERATIVE DIAGNOSES: 1. Intrauterine at 36 and 0/7th weeks. 2. Complicated high risk . 3. Morbid obesity. 4. Desires permanent surgical sterilization. 5. Gestational diabetes. POSTOPERATIVE DIAGNOSES: Same. PROCEDURE: Repeat lower transverse section with bilateral modified Felipe tubal ligation. SURGEON: Iza Villaseñor MD ASSISTANT IN NURSING: Dr. Hou and Dr. Manuel, PGY1 ESTIMATED BLOOD LOSS: 600 mL. FLUIDS: 1800 mL of fluid. URINE OUTPUT: 200 mL of clear yellow urine drained from the bladder at the end of the procedure. INDICATIONS: The patient is a 3, para 1-0-1-1 with an intrauterine at 36 and 0/7 weeks. has been complicated by morbid obesity, likely poorly controlled gestational diabetes, elevated bile salts and liver salts and elevated protein in the uterine. There was concern that this patient might have cholestasis of and so, she saw _MFM and sander and buffer. Their evaluation was that she likely did not have cholestasis of , but that she might have other indications for 36-week delivery. The patient educated herself between those physicians regarding cholestasis of . She is concerned about the risk of stillbirth. She is willing to accept the potential risk of prematurity at 36 weeks over the risk of potential stillbirth and has elected to proceed with delivery at 36 weeks. FINDINGS: Viable female infant in cephalic presentation, weighing 5 pounds 13 ounces, Apgars was 7 and 8. Clear fluid noted. Normal uterus, tubes, and ovaries were noted bilaterally. COMPLICATIONS: None. DRAINS: Allred. DISPOSITION: To recovery room in stable condition. DESCRIPTION OF PROCEDURE: The patient was taken to the operating room, where she was identified verbally and by bracelet. She was seated on the operating table, where spinal anesthetic was placed. She was then placed in dorsal supine position with leftward tilt. A Allred catheter was placed sterilely. The patient was prepped and draped with iodine in a normal sterile fashion. Time-out was held identifying correct patient, procedure, positioning and preoperative antibiotics. A Pfannenstiel incision was made over the previous incision with the knife and taken down to the underlying layer of fascia with Bovie electrocautery. Bleeding was attended to with Bovie electrocautery. The fascia was incised with the knife and taken out laterally with scissors. The superior edge of the fascial incision was grasped, elevated and the underlying layer of rectus muscle was taken off bluntly and with scissors. In a similar fashion, the inferior edge of the fascial incision was grasped, elevated and the underlying layer of rectus muscle was taken off bluntly and with scissors. The muscles were sharply and bluntly in the midline with scissors. The peritoneum was entered bluntly and was taken superiorly and inferiorly with good visualization of the bladder. The incision was then stretched and Young self-retraining retractor was placed into the incision. A bladder flap was created sharply with scissors by grasping the vesicouterine peritoneum and incising. The bladder flap was created digitally. The bladder blade was replaced. A hysterotomy incision was made with a knife and was stretched with the building operator's fingers. Amniotomy was performed with clear fluid. The building operator's hand was placed into the hysterotomy incision. The head was delivered atraumatically through this. The nose and mouth were bulb suctioned and nuchal cord x1 was reduced and the rest of the infant was then delivered without difficulty. There was immediate cry and the baby was vigorous on the operative field. The nose and mouth were again bulb suctioned. The cord was clamped and cut. The was handed off to waiting entertainment director for drying and attention. Cord blood and segment were obtained. The placenta was manually extracted. The uterus was cleared of all clot and debris with moistened laparotomy and sponges. The hysterotomy incision was reapproximated with a running locked layer of 0 Vicryl. Attention was then turned to the tubes, where a section of first the right tube and then the left tube were removed by double knotting with 2-0 plain gut suture and removing the tube sharply with scissors. The edges were attended to with cautery. Attention was then returned to the hysterotomy incision and a second layer of imbricating 0 Vicryl was placed. One [id number] suture was needed for hemostasis. The uterus was reanteriorized. The uterus was irrigated. The hysterotomy incision was noted to be hemostatic. The muscles were reapproximated in the midline with several interrupted sutures of 0 Vicryl. The fascia was reapproximated in the midline with 0 Vicryl suture. The subcuticular tissue was copiously irrigated and bleeding was attended to with Bovie electrocautery. The subQ tissue was reapproximated with several horizontal mattress sutures of 2-0 plain gut suture and the skin was then closed with 4-0 Vicryl in a subcuticular fashion. All sponge, lap and needle counts were correct x2. The patient tolerated the procedure well and was taken to recovery room in stable condition. I attest to the content of the Intraoperative Record and any orders documented therein. Any exceptions are noted below. LUCRETIA
[2017-01-25] MEDS: DOCUSATE SODIUM 100 MG CAP PO SCH (20:42)
[2017-01-26] VITALS (7 sets, daily range): BP systolic 98–113; BP diastolic 57–69; PULSE 76–86; TEMP 36.4–36.9; O2SAT 96–98
[2017-01-26] MEDS ORDERED: OXYCODONE/ACETAMINOPHEN 5-325 TAB PO PRN (02:00)
[2017-01-26] MEDS ORDERED: DiphenhydrAMINE HCL 50 MG/ML VIAL IV PRN (02:00)
[2017-01-26] MEDS ORDERED: ONDANSETRON INJ 2 MG/ML 2 ML VIAL IV PRN (02:00)
[2017-01-26] MEDS ORDERED: KETOROLAC TROMETHAMINE 30 MG/ML VIAL IV. PRN (02:00)
[2017-01-26] MEDS ORDERED: DC INTRASPINAL MORPHINE ONE (02:00)
[2017-01-26] MEDS: OXYCODONE/ACETAMINOPHEN 5-325 TAB PO PRN ×5 (05:19→22:14)
[2017-01-26] MEDS: IBUPROFEN 600 MG TAB PO PRN ×5 (05:20→22:13)
[2017-01-26 05:50] LABS: BASO % 0.1 %; BASO ABS # 0.02 K/uL (0-0.2); EOS % 0.4 %; HEMATOCRIT 27.7 % (37-47); IG% 0.3 %; LYMPH % 25.7 %; LYMPH ABS # 4.04 K/uL (1.2-3.4); MEAN CELL VOLUME 69.6 fL (80-100); MEAN CORPUSCULAR HEMOGLOBIN 21.1 pg (25-34); MEAN CORPUSCULAR HGB CONC 30.3 g/dl (32-36); MEAN PLATELET VOLUME 9.3 fL (7.4-10.4); MONO % 7.5 %; PLATELET COUNT 269 K/uL (130-400); RED BLOOD COUNT 3.98 M/uL (4.2-5.4)
[2017-01-26 06:35] LABS: COMPLETE YES; MICROCYTOSIS PRESENT; OVALOCYTES 1+
--- NOTE | 2017-01-26 07:29 | Medical Student: [facility] ---
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 Subjective conversation w/ patient, physical exam Ambulation: ambulating normally Voiding: no voiding problems Passing Gas: Yes Diet Tolerance: Regular Diet Lochia: Small Feeding Type: Breast Feeding Pain: 09/22 and improving with meds Notes: Patient is a 31 yo F, POP#1, s/p c/s Review of Systems Constitutional: No chills, No fever Respiratory: No shortness of breath Cardiac: No chest pain Abdomen: No nausea, No vomiting Female : No dysuria Did note minor itching not relieved by Benadryl Objective Vital Signs Date Time Temp Pulse Resp B/P Pulse Ox O2 Delivery O2 Flow Rate FiO2 01/26/17 04:40 36.7 81 18 104/69 97 Room Air 01/26/17 01:30 16 96 01/26/17 00:30 18 98 01/26/17 00:10 36.7 83 18 105/65 97 Room Air 01/26/17 00:10 Room Air 01/25/17 23:30 16 97 01/25/17 22:30 16 98 01/25/17 21:30 16 97 01/25/17 20:30 18 98 01/25/17 19:30 16 97 01/25/17 19:14 37.1 83 16 107/65 97 Room Air 01/25/17 18:30 16 97 01/25/17 17:30 18 97 01/25/17 16:30 16 98 01/25/17 15:30 16 97 01/25/17 15:30 37.0 91 16 112/72 97 Room Air 01/25/17 15:30 97 Room Air 01/25/17 14:00 20 99 01/25/17 13:00 36.7 75 20 112/73 97 Room Air 01/25/17 13:00 20 97 01/25/17 12:00 16 98 01/25/17 12:00 36.4 70 16 112/68 98 Room Air 01/25/17 12:00 98 Room Air Physical Exam General Appearance: WELL-APPEARING, NO APPARENT DISTRESS Fundus: Firm, Relation to Umbilicus (difficult to palpate) Incision Description: Clean, Dry & Intact Extremities: no calf tenderness, + pedal edema (+2) Laboratory Results Last 24 Hours Test 5/15/17 09:20 01/25/17 15:30 01/26/17 05:30 Hemoglobin 8.2 g/dL 8.7 g/dL 8.4 g/dL Hematocrit 27.2 % 30.0 % 27.7 % White Blood Count 15.70 K/uL Red Blood Count 3.98 M/uL Mean Corpuscular Volume 69.6 fL Mean Corpuscular Hemoglobin 21.1 pg Mean Corpuscular Hemoglobin Concent 30.3 g/dl Platelet Count 269 K/uL Mean Platelet Volume 9.3 fL Neutrophils (%) (Auto) 66.0 % Lymphocytes (%) (Auto) 25.7 % Monocytes (%) (Auto) 7.5 % Eosinophils (%) (Auto) 0.4 % Basophils (%) (Auto) 0.1 % Neutrophils # (Auto) 10.36 K/uL Lymphocytes # (Auto) 4.04 K/uL Monocytes # (Auto) 1.18 K/uL Eosinophils # (Auto) 0.06 K/uL Basophils # (Auto) 0.02 K/uL RDW Standard Deviation 41.9 fL RDW Coefficient of Variation 16.5 % Immature Granulocyte % (Auto) 0.3 % Immature Granulocyte # (Auto) 0.04 K/uL Microcytosis PRESENT Ovalocytes 1+ Assessment and Plan Post-Op Day Number: 1 Continue Routine Care: Patient is a 31 y/o POP #1, s/p C/s who is doing well. -Blood type O+ -Rubella Status: immune -GBS + Encourage ambulation, work on breast feeding, continue pain control with meds and work on reg diet.
--- NOTE | 2017-01-26 07:31 | Progress Note ---
Subjective January 26, 2017. Subjective conversation w/ patient, physical exam, lab review Ambulation: ambulating normally Voiding: no voiding problems Passing Gas: Yes Diet Tolerance: Regular Diet Lochia: Small Feeding Type: Breast Feeding Pain: improves with med Comment: Patient was seen at the bedside. No acute event overnight. Review of Systems Constitutional: No fever Respiratory: No cough, No shortness of breath Cardiac: No chest pain Breast: No breast lump Abdomen: No nausea, No pain, No vomiting Female : No dysuria, No urinary frequency Complains of itchiness, denies headache Objective Vital Signs Date Time Temp Pulse Resp B/P Pulse Ox O2 Delivery O2 Flow Rate FiO2 01/26/17 04:40 36.7 81 18 104/69 97 Room Air 01/26/17 01:30 16 96 01/26/17 00:30 18 98 01/26/17 00:10 36.7 83 18 105/65 97 Room Air 01/26/17 00:10 Room Air 01/25/17 23:30 16 97 01/25/17 22:30 16 98 01/25/17 21:30 16 97 01/25/17 20:30 18 98 01/25/17 19:30 16 97 01/25/17 19:14 37.1 83 16 107/65 97 Room Air 01/25/17 18:30 16 97 01/25/17 17:30 18 97 01/25/17 16:30 16 98 01/25/17 15:30 16 97 01/25/17 15:30 37.0 91 16 112/72 97 Room Air 01/25/17 15:30 97 Room Air 01/25/17 14:00 20 99 01/25/17 13:00 36.7 75 20 112/73 97 Room Air 01/25/17 13:00 20 97 01/25/17 12:00 16 98 01/25/17 12:00 36.4 70 16 112/68 98 Room Air 01/25/17 12:00 98 Room Air Physical Exam General Appearance: WELL-APPEARING, WD/WN, NO APPARENT DISTRESS, obese Respiratory/Chest: chest non-tender, lungs clear, normal breath sounds, no respiratory distress Cardiovascular: regular rate, rhythm Abdomen: normal bowel sounds, non tender, soft Fundus: Firm, Relation to Umbilicus (difficult to palpate ) Incision Description: Clean, Dry & Intact Extremities: non-tender, no calf tenderness, + pedal edema Laboratory Results Last 24 Hours Test 01/25/17 09:20 01/25/17 15:30 01/26/17 05:30 Hemoglobin 8.2 g/dL 8.7 g/dL 8.4 g/dL Hematocrit 27.2 % 30.0 % 27.7 % White Blood Count 15.70 K/uL Red Blood Count 3.98 M/uL Mean Corpuscular Volume 69.6 fL Mean Corpuscular Hemoglobin 21.1 pg Mean Corpuscular Hemoglobin Concent 30.3 g/dl Platelet Count 269 K/uL Mean Platelet Volume 9.3 fL Neutrophils (%) (Auto) 66.0 % Lymphocytes (%) (Auto) 25.7 % Monocytes (%) (Auto) 7.5 % Eosinophils (%) (Auto) 0.4 % Basophils (%) (Auto) 0.1 % Neutrophils # (Auto) 10.36 K/uL Lymphocytes # (Auto) 4.04 K/uL Monocytes # (Auto) 1.18 K/uL Eosinophils # (Auto) 0.06 K/uL Basophils # (Auto) 0.02 K/uL RDW Standard Deviation 41.9 fL RDW Coefficient of Variation 16.5 % Immature Granulocyte % (Auto) 0.3 % Immature Granulocyte # (Auto) 0.04 K/uL Microcytosis PRESENT Ovalocytes 1+ Medications Current Inpatient Medications Medications (Trade) Dose Ordered Sig/Melissa Route Start Time Stop Time Status Last Admin Dose Admin Lactated Ringer's (Lr 1000ml) 1,000 ml @ 1,000 mls/hr Q1H IV 01/25/17 05:32 02/24/17 05:31 01/25/17 07:10 1,000 MLS/HR Prenat Multivit/ Occupational Therapy Co Director/Iron/Folic Ac ( Vitamin Tab) 1 tab DAILY PO 01/26/17 08:00 02/25/17 07:59 Ferrous Sulfate (Feosol Tab) 325 mg DAILY PO 01/26/17 08:00 02/25/17 07:59 Ketorolac Tromethamine (Toradol Inj) 30 mg Q6H PRN IV. 01/26/17 02:00 01/30/17 01:59 Oxycodone/ Acetaminophen (Percocet 5-325mg Tab) 1 tab Q4H PRN PO 01/26/17 02:00 02/09/17 01:59 01/26/17 05:19 1 TAB Oxycodone/ Acetaminophen (Percocet 5-325mg Tab) 2 tab Q4H PRN PO 01/26/17 02:00 02/09/17 01:59 Ibuprofen (Motrin Tab) 600 mg Q4H PRN PO 01/25/17 08:45 02/24/17 08:44 01/26/17 05:20 600 MG Ondansetron HCl (Zofran Inj) 4 mg Q4H PRN IV 01/26/17 02:00 02/25/17 01:59 Bisacodyl (Dulcolax Tab) 5 mg HS ONCE PO 01/26/17 22:00 01/26/17 22:01 Docusate Sodium (coLACE CAP) 100 mg BID PO 01/25/17 20:00 02/24/17 19:59 01/25/17 20:42 100 MG Magnesium Hydroxide (Milk Of Magnesia Susp) 30 ml HS PRN PO 01/25/17 08:45 02/24/17 08:44 Cocaine HCl (Supercream 0.870% Cr) BID PRN EXT 01/25/17 08:45 02/08/17 08:44 Lanolin (Lanolin Oint) PRN PRN EXT 01/25/17 08:45 02/24/17 08:44 Hydrocortisone Acetate (Anusol Hc Supp) 25 mg BID PRN IA 01/25/17 08:45 02/24/17 08:44 Benzocaine (Dermoplast Aero Spr) 1 appln PRN PRN EXT 01/25/17 08:45 02/24/17 08:44 Diphenhydramine HCl (Benadryl Cap) 25 mg QID PRN PO 01/26/17 02:00 02/25/17 01:59 Diphenhydramine HCl (Benadryl Inj) 25 mg QID PRN IV 01/26/17 02:00 02/25/17 01:59 Senna 17.2 mg 17.2 mg HS PRN PO 01/25/17 08:45 02/24/17 08:44 Lactated Ringer's (Lr 1000ml) 1,000 ml @ 125 mls/hr Q8H IV 01/25/17 15:06 02/24/17 15:05 01/25/17 17:53 125 MLS/HR Assessment and Plan Problem List Medical Problems: (1) Dehydration Status: Acute (2) Nausea, vomiting and diarrhea Status: Acute Post-Op Day#: 1 Continue Routine Care: A/P: This is a 31 y/o female, , s/p . She is ambulating and clinically stable. Plan: - Vitals signs are reviewed and WNL (Tmax 37.1 ) - Last Hgb is 8.4 - Blood type o+, GBS positive, Rubella Immune - Routine care - Encourage ambulation, monitor and control pain with medication as needed , continue with regular diet as tolerated and monitor lochia - Stool softeners and sitz bath recommended - Encourage breast feeding and educate about breast feeding Resident Physician Supervision Note: I interviewed and examined the patient. Discussed with Dr. Manuel and agree with findings and plan as documented in the note. Any exceptions or clarifications are listed here: Doing well. Routine care. Documented By: Iza Villaseñor
[2017-01-26] MEDS: PRENATAL VITAMIN TAB PO SCH (08:00)
[2017-01-26] MEDS ORDERED: PRENATAL VITAMIN TAB PO SCH (08:00)
[2017-01-26] MEDS: DOCUSATE SODIUM 100 MG CAP PO SCH ×2 (08:29→21:03)
[2017-01-26] MEDS: FERROUS SULFATE 325 MG TAB PO SCH (08:29)
--- NOTE | 2017-01-26 11:05 | Anesthesiology Progress Note ---
Anesthesia Post Op Note Date & Time January 26, 2017 at 11:05 Vital Signs Pain Intensity: 3.0 Vital Signs Past 12 Hours Date Time Temp Pulse Resp B/P Pulse Ox O2 Delivery O2 Flow Rate FiO2 01/26/17 07:50 98 Room Air 01/26/17 07:50 36.9 76 18 98/57 98 Room Air 01/26/17 04:40 36.7 81 18 104/69 97 Room Air 01/26/17 01:30 16 96 01/26/17 00:30 18 98 01/26/17 00:10 36.7 83 18 105/65 97 Room Air 01/26/17 00:10 Room Air 01/25/17 23:30 16 97 Notes Mental Status: alert / awake / arousable, participated in evaluation Pt Amnestic to Procedure: Yes Nausea / Vomiting: adequately controlled Pain: adequately controlled Airway Patency, RR, SpO2: stable & adequate BP & HR: stable & adequate Hydration State: stable & adequate Neuraxial Anesthesia: was administered, sensory block resolved Anesthetic Complications: no major complications apparent
[2017-01-26] MEDS ORDERED: BISACODYL 5 MG TABEC PO ONE (22:00)
[2017-01-27] MEDS: IBUPROFEN 600 MG TAB PO PRN ×5 (04:08→21:11)
[2017-01-27] MEDS: OXYCODONE/ACETAMINOPHEN 5-325 TAB PO PRN ×5 (04:08→21:11)
[2017-01-27 06:38] LABS: HEMATOCRIT 25.6 % (37-47)
--- NOTE | 2017-01-27 07:03 | Medical Student: [facility] ---
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 Subjective conversation w/ patient, physical exam Ambulation: ambulating normally Voiding: no voiding problems Passing Gas: Yes Diet Tolerance: Regular Diet Lochia: Small Feeding Type: Breast Feeding Pain: 1-2/10 and improves with med Notes: Pt is a 31F POP#2, s/p C/s Review of Systems Constitutional: No chills, No fatigue, No fever Respiratory: No cough, No shortness of breath Cardiac: No chest pain Abdomen: No nausea, No pain, No vomiting Female : No dysuria, No urinary frequency Notes difficulty breast feeding and pumping. Objective Vital Signs Date Time Temp Pulse Resp B/P Pulse Ox O2 Delivery O2 Flow Rate FiO2 01/26/17 22:50 36.4 86 16 105/68 98 Room Air 01/26/17 22:50 Room Air 01/26/17 15:30 36.8 76 20 113/69 98 Room Air 01/26/17 15:30 98 Room Air 01/26/17 07:50 98 Room Air 01/26/17 07:50 36.9 76 18 98/57 98 Room Air Physical Exam General Appearance: WELL-APPEARING, WD/WN, NO APPARENT DISTRESS Fundus: Firm, Relation to Umbilicus (difficult to palpate) Incision Description: Clean, Dry & Intact Extremities: no calf tenderness, + pedal edema (+2) Laboratory Results Last 24 Hours Test 01/27/17 06:02 Hemoglobin 7.5 g/dL Hematocrit 25.6 % Assessment and Plan Post-Op Day Number: 2 Continue Routine Care: Pt is a 31F POP#1, s/p c/s doing well. -Blood type: O+ -Rubella: immune -GBS: positive Want to encourage ambulation, breast feeding (moving to pumping every 2hrs as opposed to every 3h), pain control with rx and continue watching H/H (last hgb was 7.5) Likely to discharge home tomorrow.
--- NOTE | 2017-01-27 07:11 | Progress Note ---
Subjective January 27, 2017. Subjective conversation w/ patient, physical exam, lab review Ambulation: ambulating normally Voiding: no voiding problems Passing Gas: Yes Diet Tolerance: Regular Diet Lochia: Small Feeding Type: Breast Feeding Pain: improves with med Comment: Patient was seen at the bedside. No acute event overnight. Review of Systems Constitutional: No fever Respiratory: No cough, No shortness of breath Cardiac: No chest pain Breast: No breast lump Abdomen: No nausea, No pain, No vomiting Female : No dysuria, No urinary frequency Denies headache, dizziness Objective Vital Signs Date Time Temp Pulse Resp B/P Pulse Ox O2 Delivery O2 Flow Rate FiO2 01/26/17 22:50 36.4 86 16 105/68 98 Room Air 01/26/17 22:50 Room Air 01/26/17 15:30 36.8 76 20 113/69 98 Room Air 01/26/17 15:30 98 Room Air 01/26/17 07:50 98 Room Air 01/26/17 07:50 36.9 76 18 98/57 98 Room Air Physical Exam General Appearance: WELL-APPEARING, WD/WN, NO APPARENT DISTRESS, obese Respiratory/Chest: chest non-tender, lungs clear, normal breath sounds, no respiratory distress Cardiovascular: regular rate, rhythm Abdomen: normal bowel sounds, non tender, soft Fundus: Firm, Relation to Umbilicus (difficult to palpate) Incision Description: Clean, Dry & Intact Extremities: non-tender, no calf tenderness, + pedal edema Laboratory Results Last 24 Hours Test 01/27/17 06:02 Hemoglobin 7.5 g/dL Hematocrit 25.6 % Medications Current Inpatient Medications Medications (Trade) Dose Ordered Sig/Melissa Route Start Time Stop Time Status Last Admin Dose Admin Lactated Ringer's (Lr 1000ml) 1,000 ml @ 1,000 mls/hr Q1H IV 01/25/17 05:32 02/24/17 05:31 01/25/17 07:10 1,000 MLS/HR Prenat Multivit/ Schaller/Iron/Folic Ac ( Vitamin Tab) 1 tab DAILY PO 01/26/17 08:00 02/25/17 07:59 Ferrous Sulfate (Feosol Tab) 325 mg DAILY PO 01/26/17 08:00 02/25/17 07:59 01/26/17 08:29 325 MG Ketorolac Tromethamine (Toradol Inj) 30 mg Q6H PRN IV. 01/26/17 02:00 01/30/17 01:59 Oxycodone/ Acetaminophen (Percocet 5-325mg Tab) 1 tab Q4H PRN PO 01/26/17 02:00 02/09/17 01:59 01/27/17 04:08 1 TAB Oxycodone/ Acetaminophen (Percocet 5-325mg Tab) 2 tab Q4H PRN PO 01/26/17 02:00 02/09/17 01:59 Ibuprofen (Motrin Tab) 600 mg Q4H PRN PO 01/25/17 08:45 02/24/17 08:44 01/27/17 04:08 600 MG Ondansetron HCl (Zofran Inj) 4 mg Q4H PRN IV 01/26/17 02:00 02/25/17 01:59 Docusate Sodium (coLACE CAP) 100 mg BID PO 01/25/17 20:00 02/24/17 19:59 01/26/17 21:03 100 MG Magnesium Hydroxide (Milk Of Magnesia Susp) 30 ml HS PRN PO 01/25/17 08:45 02/24/17 08:44 Cocaine HCl (Supercream 0.870% Cr) BID PRN EXT 01/25/17 08:45 02/08/17 08:44 Lanolin (Lanolin Oint) PRN PRN EXT 01/25/17 08:45 02/24/17 08:44 Hydrocortisone Acetate (Anusol Hc Supp) 25 mg BID PRN NE 01/25/17 08:45 02/24/17 08:44 Benzocaine (Dermoplast Aero Spr) 1 appln PRN PRN EXT 01/25/17 08:45 02/24/17 08:44 Diphenhydramine HCl (Benadryl Cap) 25 mg QID PRN PO 01/26/17 02:00 02/25/17 01:59 Diphenhydramine HCl (Benadryl Inj) 25 mg QID PRN IV 01/26/17 02:00 02/25/17 01:59 Senna 17.2 mg 17.2 mg HS PRN PO 01/25/17 08:45 02/24/17 08:44 Lactated Ringer's (Lr 1000ml) 1,000 ml @ 125 mls/hr Q8H IV 01/25/17 15:06 02/24/17 15:05 01/25/17 17:53 125 MLS/HR Assessment and Plan Problem List Medical Problems: (1) Dehydration Status: Acute (2) Nausea, vomiting and diarrhea Status: Acute Post-Op Day#: 2 Continue Routine Care: A/P: This is a 31 y/o female, , s/p . She is ambulating and clinically stable. Plan: - Vitals signs are reviewed and WNL (Tmax 36.9 ) - Last Hgb is 7.5 - Blood type O+, GBS positive, Rubella Immune - Routine care - Encourage ambulation, monitor and control pain with medication as needed , continue with regular diet as tolerated and monitor lochia - Stool softeners and sitz bath recommended - Encourage breast feeding and educate about breast feeding Resident Physician Supervision Note: I interviewed and examined the patient. Discussed with Dr. Manuel and agree with findings and plan as documented in the note. Any exceptions or clarifications are listed here: [None] Documented By: Carlos Ingram
[2017-01-27 08:00] VITALS: O2SAT 99
[2017-01-27] MEDS: PRENATAL VITAMIN TAB PO SCH (08:00)
[2017-01-27] MEDS: DOCUSATE SODIUM 100 MG CAP PO SCH ×2 (08:40→20:00)
[2017-01-27] MEDS: FERROUS SULFATE 325 MG TAB PO SCH (08:40)
[2017-01-27 15:40] VITALS: O2SAT 99
[2017-01-27 16:00] VITALS: BP 116/69; PULSE 75; TEMP 36.8
[2017-01-27 23:40] VITALS: BP 114/69; PULSE 81; TEMP 36.7
[2017-01-28] MEDS: IBUPROFEN 600 MG TAB PO PRN ×3 (01:30→11:50)
[2017-01-28] MEDS: OXYCODONE/ACETAMINOPHEN 5-325 TAB PO PRN ×3 (01:30→11:49)
--- NOTE | 2017-01-28 06:59 | Progress Note ---
Subjective January 28, 2017. Subjective conversation w/ patient, physical exam Ambulation: ambulating normally Voiding: no voiding problems Diet Tolerance: Regular Diet Lochia: Small Feeding Type: Breast Feeding Pain: pain well controlled. Objective Vital Signs Date Time Temp Pulse Resp B/P Pulse Ox O2 Delivery O2 Flow Rate FiO2 01/27/17 23:40 36.7 81 18 114/69 Room Air 01/27/17 23:40 Room Air 01/27/17 16:00 36.8 75 18 116/69 Room Air 01/27/17 15:40 99 Room Air 01/27/17 08:00 99 Room Air Physical Exam General Appearance: WELL-APPEARING, WD/WN, NO APPARENT DISTRESS Respiratory/Chest: lungs clear Cardiovascular: regular rate, rhythm Abdomen: non tender, soft Fundus: Firm, Relation to Umbilicus ( 2down) Incision Description: Clean, Dry & Intact (with steris) Extremities: non-tender, no calf tenderness Assessment and Plan Problem List Medical Problems: (1) Dehydration Status: Acute (2) Nausea, vomiting and diarrhea Status: Acute Post-Op Day#: 3 Continue Routine Care: stable, desires d/c home, pain well controlled. f/u 6 wks pp check. instructions reviewed.
[2017-01-28] MEDS ORDERED: MTR600X PO (07:00)
[2017-01-28] MEDS ORDERED: OXYC-57 PO (07:00)
--- NOTE | 2017-01-28 07:03 | Discharge Instructions ---
Discharge Instructions Date of Service January 28, 2017. Admission Reason for Admission: Previous Section, Desires Sterilization Discharge Discharge Diagnosis / Problem: s/p c/s Discharge Goals Goal(s): Routine recovery after Medications Continue Dispensed Medications: supercream, dermaplast, tucks, lansinoh Activity Recommendations Activity Limitations: as noted below . Instructions / Follow-Up Instructions / Follow-Up ACTIVITY RECOMMENDATIONS: * Gradual return to full activity over the next 2-3 weeks. * No lifting - nothing heavier than baby over the next 2-3 weeks. * Do not engage in vigorous exercise, sexual activity or sports until cleared by your physician. * Do not drive or operate any motorized equipment until cleared by your physician. * You may shower/bathe daily. MEDICATIONS: For discomfort or pain, you may use Acetaminophen (Tylenol), Ibuprofen (Advil), or Naproxen (Aleve) following the package directions. For constipation you may use Colace following the package directions. BREAST CARE: If you are not breast feeding: * Wear a supportive bra 24 hours a day for one to two weeks. * Avoid stimulating your breasts and nipples as much as possible during the first few weeks after delivery. * When taking a shower, have the warm water hit your back, not breasts. * When your breasts feel full, apply ice packs. Usually three to four times a day helps ease the discomfort. * Take a mild pain medication (Tylenol / Motrin) when you are uncomfortable. If breast feeding: * Use breast milk to lubricate nipples. Lansinoh cream may be used for sore nipples. You do not need to remove cream prior to breast feeding. If using a different brand of cream, check the label for directions regarding removal of cream prior to nursing. * Wear a supportive bra. * If having problems with breasts or breast feeding, call a technical consultant or your health care provider. SPECIAL CARE INSTRUCTIONS: When you are discharged from the hospital, it is important for you to follow the instructions listed below: * During the first week at home, you should be able to care for yourself and your baby. In addition, the usual light household activities are encouraged. * Limit your activities to the way you feel. Do not try to clean the house or move furniture. Be sensible. * If you actively engage in sports and have done so up until the time of your delivery, you may resume these activities as soon as you feel able. This may take up to one month or even longer. Use good judgment. * Continue to take your vitamins for at least six weeks after the of your baby. * Your diet need not be limited unless you were on a special diet before your delivery. Breast-feeding mothers need around 2500 calories per day and at least 64-80 ounces of fluid per day (8 to 10 glasses). * You should eat foods from the four major food groups. Crash diets or fad diets are to be avoided. Eating lean meats, fresh fruits and vegetables, low-fat dairy products, high fiber foods and a regular exercise program, will help you get back to your pre- weight without putting your health at risk. * Constipation is sometimes a problem after delivery. Take a mild laxative as needed. If breast feeding, Milk of Magnesia is acceptable to use. You may use a suppository or Fleets enema. * A daily shower or tub bath is suggested. Wash incision daily with warm soapy water and pat dry. It doesn't need to be covered unless drainage is present. * A bloody vaginal discharge will usually continue until around four weeks . A small amount of bleeding may continue for as long as six weeks. Vaginal discharge changes from the bright red bleeding after delivery to pink then brownish and finally yellowish-pink before becoming white and disappearing. * Bleeding may increase with activity. Your first period may come in 4-8 weeks. If you are breast feeding, your period may be delayed even longer. * Nutrioso (sex) can begin whenever both you and your partner feel comfortable and do not have any form of genital infection. It is recommended that you wait at least six weeks for internal and external healing to occur. If you have questions, please talk to your health care practitioner. A condom should be used to prevent infection and . * Foreplay, gentle intercourse and lubrication is very important the first several times to prevent pain. A water-based lubricant such as K-Y jelly or Astroglide may be used. * If you have RH negative blood and your baby is RH positive, you will receive RHOGAM by injection prior to discharge. The nurse will give you a card to keep with you that has the date and place that you received RHOGAM after delivery. * During your care, you had a Rubella screen done to check for the presence of rubella antibodies in your blood. If your test was negative, you will receive a Rubella vaccine prior to discharge. This vaccine may cause a fever, soreness at the injection site and flu-like symptoms. If these symptoms persist, notify your health care practitioner. is not advised for one month after a Rubella vaccine. * Verbalizes understanding of car seat law as reviewed with patient nursing. * Car Seat hand-out given and reviewed with patient by nursing. * Shaken baby information reviewed with patient by nursing. Call you doctor if: * Heavy bleeding (saturating several pads an hour) or passing clots the size of your fist. * A fever >101 degrees F (38.3 degrees C) on two occasions four hours apart and /or chills. * Unusual pain in the pelvic or vaginal areas. * Call the doctor for any increased redness, drainage or swelling around the incision and any pain unrelieved by prescribed pain medication. * "Baby Blues" lasting longer than two weeks. If you have any questions or concerns, call your health care practitioner at . FOLLOW UP VISIT: * Please call the office at to schedule a 6 week examination. It is important you keep this appointment. It is important for you to make arrangements for either yearly or twice yearly check-ups thereafter. Current Hospital Diet Patient's current hospital diet: Regular OB Diet Discharge Diet Recommended Diet: Regular Diet Procedures Procedures Performed: Low transverse section delivery for viable female at 0759 Bilateral tubal ligation Pending Studies Studies pending at discharge: yes List of pending studies: pathology Medical Emergencies . Who to Call and When: Medical Emergencies: If at any time you feel your situation is an emergency, please call [phone] immediately. . Non-Emergent Contact Non-Emergency issues call your: Tile Layer Supervisor (see them as scheduled for followup), Family Physician . . "Provider Documentation" section prepared by Gina Fischer. . VTE Core Measure Inpt VTE Proph given/why not?: Treatment not indicated [place] Drug Monitoring Program Search Results: patient reviewed within database, no issues identified
--- NOTE | 2017-01-28 07:07 | Medical Student: [facility] ---
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 Subjective conversation w/ patient, physical exam, lab review Ambulation: ambulating normally Voiding: no voiding problems, no incontinence Passing Gas: Yes Diet Tolerance: Regular Diet Lochia: Small Feeding Type: Breast Feeding Pain: 1/10 and improves with rx Notes: Pt is a 31 POP#3, s/p c/s complicated by cholestasis and morbid obesity Blood type 0+ Rubella: Immune GBS + Review of Systems Constitutional: No chills, No fever, No sweats Respiratory: No cough, No shortness of breath, No wheezing Cardiac: No chest pain, No palpitations Abdomen: No constipation, No diarrhea, No nausea, No vomiting Female : No dysuria, No urinary frequency Objective Vital Signs Date Time Temp Pulse Resp B/P Pulse Ox O2 Delivery O2 Flow Rate FiO2 01/27/17 23:40 36.7 81 18 114/69 Room Air 01/27/17 23:40 Room Air 01/27/17 16:00 36.8 75 18 116/69 Room Air 01/27/17 15:40 99 Room Air 01/27/17 08:00 99 Room Air Physical Exam General Appearance: WELL-APPEARING, WD/WN, NO APPARENT DISTRESS Respiratory/Chest: chest non-tender, lungs clear, normal breath sounds, no respiratory distress Cardiovascular: regular rate, rhythm, no murmur Abdomen: non tender, soft Fundus: Firm, Relation to Umbilicus (difficult to palpate) Incision Description: Clean, Dry & Intact Extremities: no calf tenderness, + pedal edema (+1) Assessment and Plan Post-Op Day Number: 3 Continue Routine Care: Pt is a 31F POP#3 s/p c/s doing well. We plan to discharge Daphne later today and prescribe her discharge meds.
[2017-01-28 07:34] VITALS: BP 115/75; PULSE 76; TEMP 36.8; O2SAT 98
[2017-01-28] MEDS: FERROUS SULFATE 325 MG TAB PO SCH (07:42)
[2017-01-28] MEDS: DOCUSATE SODIUM 100 MG CAP PO SCH (08:00)
[2017-01-28] MEDS: PRENATAL VITAMIN TAB PO SCH (08:00)
[2017-01-28 13:00] VITALS: BP_DIAS 75; PULSE 76; TEMP 36.8
--- NOTE | 2017-02-02 09:13 | DISCHARGE SUMMARY ---
ADMISSION DIAGNOSES: 1. Intrauterine at 36 and 0/7 weeks. 2. Complicated medical issues concerning . 3. Morbid obesity. 4. History of previous section. 5. Desires permanent surgical sterilization. DISCHARGE DIAGNOSES: Same. PROCEDURES: Repeat lower transverse section with bilateral tubal ligation. HISTORY OF PRESENT ILLNESS: The patient is a 31-year-old 3, para 1-0-1-1 with an EDC of 02/22/2017 based on last menstrual period consistent with first trimester ultrasound. The patient presents to labor and delivery today for repeat section and tubal ligation at 36 weeks. Her first was delivered at 39 weeks. It was a that was for breech presentation. That was complicated in the postop period with exploratory laparotomy above her umbilicus for an incarcerated ventral wall hernia. 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 She recovered well from that and is now again. This did have many complications. It has been complicated by morbid obesity with minimal weight gain in this . It has been complicated by gestational diabetes for which the patient has been reluctant to check blood sugars because she does not like sticking herself. Therefore, it is likely that this has been a fairly uncontrolled diabetic , although she notes that she has been monitoring her diet. She has had essentially no growth ultrasounds. This gestational diabetes was detected at her 28-week 2-hour glucose tolerance tests where she failed to just one of the values. The patient really did not even see dietitian until 34 and 3/7 weeks. Apparently, she has been diagnosed with gestational diabetes in her previous pregnancies, but wanted to test again this time. Approximately 3 weeks ago, the patient was admitted to the hospital with an episode of nausea, vomiting, dehydration, and diarrhea. This occurred after she ate at the [facility]. She was found to have elevated liver enzymes and elevated bile salts at this time. Her pressures were a little elevated at that hospitalization and subsequently and she eventually turned in a 24-hour urine revealing 454 mg of protein in a 24-hour collection. She was seen by GI because she had chronic diarrhea with no discernible diagnosis after an extensive workup. Her liver function tests resolved back to normal; however, her bile salts remained elevated. Given this, there was concern for cholestasis of and so she was sent to [facility] for evaluation. The bottom line on this was that there was no other explanation for the elevated bile salts, but for cholestasis of , although this was the most unusual presentation as the patient had no itching whatsoever. She was recommended to take Uristat and [facility] wanted her to see hepatology. That appointment was scheduled quite quickly and she was seen the following Wednesday. She was evaluated by hepatology at the [facility] with their results that there was no evidence of chronic liver disease or cholestasis of . They suspected that her elevated liver enzymes were actually related to the acute gastroenteritis or may have been related to use of Augmentin in mid-October. They contacted [facility] and had a conversation with them and assess her providing doctors. They noted that they were now skeptical of the diagnosis of cholestasis of and they did not feel like delivery at 36 weeks was indicated for that and that the risk of prematurity at 36 weeks was likely greater than the risks associated with cholestasis of . However, [facility] did state that it would be not be totally unreasonable to do a repeat section at 36 weeks given the complication with this lady's including her morbid obesity, and her questionable preeclampsia given her elevated 24-hour urine. Given that she had poorly controlled gestational diabetes, a 24-hour urine with greater than 400 mg of protein and that there was a questionable early preeclampsia without severe features, that she is morbidly obese and that we are not sure with the etiology of the elevated bile salts were, we discussed all of this in detail with the patient. The patient had done a general research regarding cholestasis of and was quite concerned about the possibility of stillborn, despite the fact that we do not believe that the patient had a diagnosis of cholestasis of . The patient must had been having twice weekly NSTs with PATRICE and S/D ratios, all being very reassuring. After discussing with her family, she has decided that she would like to proceed with section at 36 weeks. She understands that there is a risk of prematurity associated with a delivery at 36 weeks which might necessitate transfer the baby to a tertiary care center, should it need further evaluation and treatment. The patient understands that [facility] and the iron caster have told us that we can delay the section until a later date. Additionally, the patient was concerned about the original 36 and 0/7 weeks date because her support people in her family were going to be in [place]. So we therefore offered that we could move back the section and again she has declined and elects to proceed at 36 and 0/7 weeks. For the rest of the patient's detailed history and physical, please see her dictated history and physical. ASSESSMENT: Daphne is a 3, para 1-0-1-1 with an intrauterine at 36 and 0/7 weeks. This has been complicated by many issues including, previous section for breech, morbid obesity, likely poorly controlled gestational diabetes, 24-hour urine with greater than 400 mg of protein and elevated bile salts of unknown cause. After a long conversation between our consultants including, [facility] and [facility]ology at [facility], the patient herself after all this counseling desires to proceed with section at 36 weeks given the possible concern for stillbirth which maternal medicine has said is not unreasonable. We did offer to push it back to a 36 completed weeks or at least another week until her family returned from [place] and she has declined this. It was clearly explained to the patient, the risk of prematurity and the baby may need to be transferred to a tertiary care center, should it develop issues that cannot be taken care of here. She had expressed understanding of this. She will prefer to have the baby delivered, so that if this is a strange presentation of cholestasis of , the risk of stillbirth is everted. She has had normal and reassuring testing throughout. HOSPITAL COURSE: The patient was admitted and underwent a repeat lower transverse section to deliver a viable female infant in cephalic presentation, weighing 5 pounds 13 ounces, Apgars of 7 and 8. Clear fluid was noted. Normal uterus, tubes, and ovaries were noted bilaterally. Additionally, a bilateral modified Felipe tubal ligation was performed. Estimated blood loss was 600 mL. The patient's postoperative and course was uncomplicated. She tolerated a regular diet, ambulated without difficulty, voided after removal of her Allred catheter, had her pain well controlled on oral pain medications. She was discharged home on postoperative day #3 to return in 6 weeks for routine care. She was discharged with Percocet and ibuprofen for pain medications. Her discharge H\T\H was 7.5 and 25.6. Of note, the patient did start with a hemoglobin of 8.4 and 28.4.
== END 2017-01-28 13:10 | disposition home or self-care (01) | DRG 765 ==
LOC: C.LD 05:30 → C.OBG 12:00 → EDSTATUS 02-19 11:57
PROVIDERS: ADMIT Obstetrics & Gynecology; ATTEND Obstetrics & Gynecology
PROC: 0UB70ZZ Excision of Bilateral Fallopian Tubes, Open Approach (ICD-10-PCS; principal; 2017-01-25 07:30)
PROC: 10D00Z1 Extraction of Products of Conception, Low, Open Approach (ICD-10-PCS; principal; 2017-01-25 07:30)
DX: O99.284 Endocrine, nutritional and metabolic diseases complicating childbirth (principal); Z68.43 Body mass index [BMI] 50.0-59.9, adult; E78.70 Disorder of bile acid and cholesterol metabolism, unspecified; O24.429 Gestational diabetes mellitus in childbirth, unspecified control; O12.14 Gestational proteinuria, complicating childbirth; O34.211 Maternal care for low transverse scar from previous cesarean delivery; N85.8 Other specified noninflammatory disorders of uterus; O69.81X0 Labor and delivery complicated by cord around neck, without compression, not applicable or unspecified; O99.824 Streptococcus B carrier state complicating childbirth; O99.02 Anemia complicating childbirth; D64.9 Anemia, unspecified; O99.214 Obesity complicating childbirth; E66.01 Morbid (severe) obesity due to excess calories; Z37.0 Single live birth; Z3A.36 36 weeks gestation of pregnancy; Z30.2 Encounter for sterilization; Z91.19 Patient's noncompliance with other medical treatment and regimen; Z98.84 Bariatric surgery status

== ENCOUNTER 2017-02-03 14:45 | Emergency (ER) | payer BC ==
[~2017-02-03] VITALS: Ht 162.6 cm; Wt 139.1 kg
[~2017-02-03 14:45] MED LIST changes: -EPP3/2 IM; +FERR1TAB13 PO; +MTR600X PO; -ONDA4TAB10 SL; +OXYC-57 PO; +SIME80CH
[2017-02-03 14:48] VITALS: Ht 162.6 cm; Wt 139.1 kg
[2017-02-03] MEDS ORDERED: SODIUM CHLORIDE 0.9% 1000ML 1,000 ML IV STA ×2 (15:18)
[2017-02-03 15:48] LABS: BASO % 0.2 %; BASO ABS # 0.02 K/uL (0-0.2); EOS % 2.4 %; HEMATOCRIT 27.2 % (37-47); IG% 0.2 %; LYMPH % 27.2 %; LYMPH ABS # 2.45 K/uL (1.2-3.4); MEAN CELL VOLUME 70.1 fL (80-100); MEAN CORPUSCULAR HEMOGLOBIN 20.9 pg (25-34); MEAN CORPUSCULAR HGB CONC 29.8 g/dl (32-36); MEAN PLATELET VOLUME 9.6 fL (7.4-10.4); MONO % 7.2 %; NEUT % 62.8 %; PLATELET COUNT 326 K/uL (130-400); RED BLOOD COUNT 3.88 M/uL (4.2-5.4)
[2017-02-03 15:59] LABS: INR 0.9 (0.9-1.1)
--- NOTE | 2017-02-03 15:59 | DIAGNOSTIC IMAGING REPORT ---
CHEST 2 VIEWS ROUTINE CLINICAL HISTORY: SOB, 9 DAYS POST COMPARISON STUDY: 06/05/2015 FINDINGS: The bones soft tissues and hemidiaphragms are normal. The cardiomediastinal silhouette is normal. The lungs are clear. The pulmonary vasculature is normal. IMPRESSION: Negative chest. Electronically signed by: Dax Munoz M.D. 02/03/2017 3:57 PM Dictated Date/Time: 02/03/2017 3:57 PM
[2017-02-03] MEDS ORDERED: OPTIRAY 320 IV PRN (16:00)
[2017-02-03 16:10] LABS: AST/SGOT 20 U/L (15-37); BLOOD UREA NITROGEN 9 mg/dl (7-18); BUN/CREATININE RATIO 15.9 (10-20); CARBON DIOXIDE 22 mmol/L (21-32); CHLORIDE 114 mmol/L (98-107); CREATININE 0.57 mg/dl (0.60-1.20); GLUCOSE 79 mg/dl (70-99); POTASSIUM 3.8 mmol/L (3.5-5.1); SODIUM 145 mmol/L (136-145)
[2017-02-03 16:21] LABS: ALB/GLOB RATIO 0.7 (0.9-2); ALKALINE PHOSPHATASE 49 U/L (45-117); ALT/SGPT 23 U/L (12-78); CKMB/CK RATIO 1.6 (0-3.0)
[2017-02-03 16:37] LABS: COMPLETE YES; HYPOCHROMIA PRESENT; MICROCYTOSIS PRESENT; OVALOCYTES 1+; POLYCHROMASIA 1+; SCHISTOCYTES OCCASIONAL; TEAR DROP CELLS OCCASIONAL
[2017-02-03 16:41] LABS: URINE APPEARANCE CLEAR (CLEAR); URINE BILIRUBIN NEG (NEG); URINE COLOR YELLOW; URINE EPITHELIAL CELL AUTO 20-30 /lpf (0-5); URINE NITRITE NEG (NEG); URINE PH 5.5 (4.5-7.5); URINE SPECIFIC GRAVITY 1.008 (1.000-1.030); UROBILINOGEN NEG (NEG)
[2017-02-03 16:42] LABS: MANUAL MICROSCOPIC REQUIRED? NO; REVIEW REQ? NO
--- NOTE | 2017-02-03 17:30 | DIAGNOSTIC IMAGING REPORT ---
CT ANGIOGRAPHY OF THE CHEST, PULMONARY EMBOLUS PROTOCOL CLINICAL HISTORY: Shortness of breath. Elevated d-dimer. Recent section. COMPARISON STUDY: Chest radiograph June 05, 2015 and February 03, 2017. TECHNIQUE: Following IV administration of 94 mL of Optiray-320, helical axial images of the chest were obtained utilizing the pulmonary embolus protocol. Maximal intensity projections and sagittal and coronal reformats were viewed on an independent 3D workstation. IV contrast was administered without complication. CT DOSE: 794.41 mGy.cm FINDINGS: No pulmonary emboli are identified although the subsegmental vessels are suboptimally assessed due to respiratory motion. Cardiac size is at upper limits of normal. There are no enlarged thoracic lymph nodes. There are trace bilateral pleural effusions. Mild subpleural opacities reflect atelectasis. There is no consolidation to suggest pneumonia. There is no pneumothorax. The bony thorax is unremarkable. Visualized portions of the upper abdomen demonstrate findings consistent with gastric bypass. IMPRESSION: 1. No pulmonary emboli identified although subsegmental vessels suboptimally assessed due to respiratory motion and suboptimal vessel opacification. 2. Trace bilateral pleural effusions with associated subsegmental atelectasis. Electronically signed by: Lg Cuellar M.D. 02/03/2017 5:28 PM Dictated Date/Time: 02/03/2017 5:23 PM
--- NOTE | 2017-02-03 17:51 | EMERGENCY ROOM VISIT NOTE ---
History First contact with patient: 14:56 Chief Complaint: SHORTNESS OF BREATH Stated Complaint: SOB, MILD CP, NECK PAIN, LIGHTHEADED, CSEC LAST WE Nursing Triage Summary: Pt c/o SOB that began 2 days ago and got worse today. CSection 01/25. Pt states tightness around lower ribcage. Pt c/o pain at base of neck that began last night. Patient states she has severe anemia also concerned about blood clot. History of Present Illness Patient is a 31-year-old white female with past medical history significant for anemia, status post cholecystectomy and gastric bypass surgery, and who is 9 days status post repeat and tubal ligation who presents to the emergency department for evaluation of shortness of breath. She states her symptoms started about 3 days ago. She noted some slight shortness of breath with activity, but states that her [id number] daughter was diagnosed with croup that day and she thought that she might be getting an upper respiratory illness. She states that yesterday her mother who is a nurse practitioner, noted that she was "breathing funny." The shortness of breath has worsened in the last 24 hours. She now notes that she is even short of breath with just standing up, in addition to the exertion. She also notes a squeezing pain around her lower rib cage that she describes as feeling like a band or a belt around her upper ribs. She notes this with deep breathing. She feels slightly lightheaded and notes a dull occipital headache. She has a dry, nonproductive cough. She denies any stuffy, runny nose, sinus and nasal congestion, sore throat or ear pain. She denies any upper chest pain, no palpitations. She denies any abdominal pain, nausea, vomiting or stool changes or urinary symptoms. She has not had any fevers. She has expected incisional pain, and normal vaginal bleeding status post . She did have an epidural, denies any back pain. She has some trace lower extremity swelling, left worse than right which she states is chronic for her. Per her old records, was complicated by her morbid obesity and poorly controlled gestational diabetes. Patient also around 33 weeks was admitted to the hospital for an episode of nausea, vomiting, diarrhea and dehydration and was found to have elevated LFTs and bile salts. She had a thorough workup performed by gastroenterology, her she maternal medicine, and hepatology, due to concern for cholestasis of . There was also concern regarding questionable preeclampsia. Given these multiple factors, the patient elected to proceed with a repeat at 36 weeks. Review of Systems Review of systems as per HPI. All other systems reviewed were negative. 10 systems reviewed. Past Medical/Surgical History Medical Problems: (1) 36 weeks gestation of (2) Anemia (3) Bariatric surgery status affecting , antepartum (4) Breech presentation, antepartum (5) Bronchitis (6) Carrier of group B Streptococcus (7) Dehydration (8) Dyspnea (9) First-trimester bleeding (10) Incisional hernia (11) low heart rate in office (12) Maternal obesity affecting , antepartum (13) Morbid Obesity (14) Nausea, vomiting and diarrhea (15) RUQ pain (16) Ulcer Surgical Problems: (1) Cholecystectomy planned (2) H/O gastric bypass (3) Tubal ligation status Electronic medical records are reviewed and summarized as above/below. See Problem List. Family History Cancer Diabetes mellitus Hypertension Social History Smoking Status: Former Smoker Alcohol Use: none Marital Status: Housing Status: lives with significant other Occupation Status: employed Current/Historical Medications Scheduled Ferrous Sulfate (Kp Ferrous Sulfate), 1 TAB PO HS Multivit/Min/Iron/Fol Ac/Pren ( Vitamin), 1 TAB PO HS Scheduled PRN Ibuprofen (Ibuprofen), 600 MG PO Q6 PRN for Pain, [place], Cramping, or Fever Oxycodone/Acetaminophen 5MG/325MG (Percocet 5MG/325MG), 1-2 TAB PO Q4H PRN for Pain Allergies Coded Allergies: Latex1 -Allergic Contact Dermititis (Unverified Allergy, Mild, 02/03/17) Physical Exam Vital Signs Date Time Temp Pulse Resp B/P Pulse Ox O2 Delivery O2 Flow Rate FiO2 02/03/17 17:57 36.7 52 20 155/91 100 02/03/17 17:35 52 20 155/91 100 Room Air 02/03/17 16:51 63 16 167/86 100 Room Air 02/03/17 16:00 60 147/88 69 122/96 71 142/86 02/03/17 15:26 65 02/03/17 15:06 Room Air 02/03/17 14:48 36.7 70 24 137/78 97 Room Air 02/03/17 14:48 97 Room Air Physical Exam CONSTITUTIONAL: Patient is a morbidly obese 31-year-old white female who is awake and alert and in no acute distress. She is sitting upright on the gurney. She is able to speak in full sentences. No conversational dyspnea noted. Vital signs are stable. EYES: Pupils equal, round, reactive to light and accommodation. EOMs intact without nystagmus. Sclera are anicteric. ENT: Tympanic membranes intact, with normal landmarks. External canals are clear. Oral and nasopharynx are clear. Mucous membranes are moist, no lesions , tongue and gums appear normal. NECK: Supple without lymphadenopathy. No thyromegaly. No meningeal signs. Full active range of motion without discomfort. CARDIOVASCULAR: Regular rate and rhythm, with normal S1 and S2, no murmur or gallop or rub is heard. No carotid bruits auscultated. No JVD. Peripheral pulses easy to palpable. RESPIRATORY: Breath sounds equal and clear to auscultation without wheezes, rales, or rhonchi heard. Full and equal chest expansion without accessory muscle use or retractions. GI: Bowel sounds are present. Multiple well-healed surgical scars are noted. Pfannenstiel surgical incision intact with Steri-Strips. Note the erythema, drainage or discharge. Abdomen is soft, nontender, nondistended. No organomegaly. No pulsatile masses. No guarding or rebound. MUSCULOSKELETAL: Full range of motion of extremities x 4 with good strength. Trace pretibial pitting edema noted bilaterally. Calves are soft and nontender. No joint swelling. No cyanosis. INTEGUMENTARY: No lesions or rash, normal skin turgor. NEUROLOGICAL: Alert, oriented, and cooperative. Cranial nerves, sensation and strength grossly intact. Pupils round, equal, and react to light, EOMs are full. LYMPH: No lymphadenopathy. Medical Decision & Procedures ER Provider Diagnostic Interpretation: CHEST 2 VIEWS ROUTINE CLINICAL HISTORY: SOB, 9 DAYS POST COMPARISON STUDY: 06/05/2015 FINDINGS: The bones soft tissues and hemidiaphragms are normal. The cardiomediastinal silhouette is normal. The lungs are clear. The pulmonary vasculature is normal. IMPRESSION: Negative chest. CT ANGIOGRAPHY OF THE CHEST, PULMONARY EMBOLUS PROTOCOL CLINICAL HISTORY: Shortness of breath. Elevated d-dimer. Recent section. COMPARISON STUDY: Chest radiograph June 05, 2015 and February 03, 2017. TECHNIQUE: Following IV administration of 94 mL of Optiray-320, helical axial images of the chest were obtained utilizing the pulmonary embolus protocol. Maximal intensity projections and sagittal and coronal reformats were viewed on an independent 3D workstation. IV contrast was administered without complication. CT DOSE: 794.41 mGy.cm FINDINGS: No pulmonary emboli are identified although the subsegmental vessels are suboptimally assessed due to respiratory motion. Cardiac size is at upper limits of normal. There are no enlarged thoracic lymph nodes. There are trace bilateral pleural effusions. Mild subpleural opacities reflect atelectasis. There is no consolidation to suggest pneumonia. There is no pneumothorax. The bony thorax is unremarkable. Visualized portions of the upper abdomen demonstrate findings consistent with gastric bypass. IMPRESSION: 1. No pulmonary emboli identified although subsegmental vessels suboptimally assessed due to respiratory motion and suboptimal vessel opacification. 2. Trace bilateral pleural effusions with associated subsegmental atelectasis. Laboratory Results 02/03/17 15:25 Red Blood Count 3.88, Mean Corpuscular Volume 70.1, Mean Corpuscular Hemoglobin 20.9, Mean Corpuscular Hemoglobin Concent 29.8, Mean Platelet Volume 9.6, Neutrophils (%) (Auto) 62.8, Lymphocytes (%) (Auto) 27.2, Monocytes (%) (Auto) 7.2, Eosinophils (%) (Auto) 2.4, Basophils (%) (Auto) 0.2, Neutrophils # (Auto) 5.64, Lymphocytes # (Auto) 2.45, Monocytes # (Auto) 0.65, Eosinophils # (Auto) 0.22, Basophils # (Auto) 0.02 02/03/17 15:25 Test 02/03/17 15:20 02/03/17 15:25 02/03/17 15:33 Urine Color YELLOW Urine Appearance CLEAR (CLEAR) Urine pH 5.5 (4.5-7.5) Urine Specific [place] 1.008 (1.000-1.030) Urine Protein NEG (NEG) Urine Glucose (UA) NEG (NEG) Urine Ketones NEG (NEG) Urine Occult Blood TRACE (NEG) Urine Nitrite NEG (NEG) Urine Bilirubin NEG (NEG) Urine Urobilinogen NEG (NEG) Urine Leukocyte Esterase NEG (NEG) Urine WBC (Auto) 1-5 /hpf (0-5) Urine RBC (Auto) 0-4 /hpf (0-4) Urine Hyaline Casts (Auto) 0 /lpf (0-5) Urine Epithelial Cells (Auto) 20-30 /lpf (0-5) Urine Bacteria (Auto) NEG (NEG) White Blood Count 9.00 K/uL (4.8-10.8) Red Blood Count 3.88 M/uL (4.2-5.4) Hemoglobin 8.1 g/dL (12.0-16.0) Hematocrit 27.2 % (37-47) Mean Corpuscular Volume 70.1 fL (80-100) Mean Corpuscular Hemoglobin 20.9 pg (25-34) Mean Corpuscular Hemoglobin Concent 29.8 g/dl (32-36) Platelet Count 326 K/uL (130-400) Mean Platelet Volume 9.6 fL (7.4-10.4) Neutrophils (%) (Auto) 62.8 % Lymphocytes (%) (Auto) 27.2 % Monocytes (%) (Auto) 7.2 % Eosinophils (%) (Auto) 2.4 % Basophils (%) (Auto) 0.2 % Neutrophils # (Auto) 5.64 K/uL (1.4-6.5) Lymphocytes # (Auto) 2.45 K/uL (1.2-3.4) Monocytes # (Auto) 0.65 K/uL (0.11-0.59) Eosinophils # (Auto) 0.22 K/uL (0-0.5) Basophils # (Auto) 0.02 K/uL (0-0.2) RDW Standard Deviation 42.9 fL (36.4-46.3) RDW Coefficient of Variation 16.8 % (11.5-14.5) Immature Granulocyte % (Auto) 0.2 % Immature Granulocyte # (Auto) 0.02 K/uL (0.00-0.02) Polychromasia 1+ Hypochromasia PRESENT Microcytosis PRESENT Tear Drop Cells OCCASIONAL Ovalocytes 1+ Schistocytes OCCASIONAL Prothrombin Time 10.0 SECONDS (9.0-12.0) Prothromb Time International Ratio 0.9 (0.9-1.1) Activated Partial Thromboplast Time 25.7 SECONDS (21.0-31.0) Partial Thromboplastin Ratio 1.0 Anion Gap 9.0 mmol/L (3-11) Est Creatinine Clear Calc Drug Dose 197.9 ml/min Estimated GFR () 142.2 Estimated GFR (Non- 122.7 BUN/Creatinine Ratio 15.9 (10-20) Calcium Level 8.0 mg/dl (8.5-10.1) Total Bilirubin 0.2 mg/dl (0.2-1) Aspartate Amino Transf (AST/SGOT) 20 U/L (15-37) Alanine Aminotransferase (ALT/SGPT) 23 U/L (12-78) Alkaline Phosphatase 49 U/L (45-117) Total Creatine Kinase 57 U/L (26-192) Creatine Kinase MB 0.9 ng/ml (0.5-3.6) Creatine Kinase MB Ratio 1.6 (0-3.0) Troponin I < 0.015 ng/ml (0-0.045) Total Protein 6.5 gm/dl (6.4-8.2) Albumin 2.7 gm/dl (3.4-5.0) Globulin 3.8 gm/dl (2.5-4.0) Albumin/Globulin Ratio 0.7 (0.9-2) Thyroid Stimulating Hormone (TSH) 1.670 uIu/ml (0.300-4.500) Bedside D-Dimer > 450 ng/mlFEU (0-450) Medications Administered Medications (Trade) Dose Ordered Sig/Melissa Route Start Time Stop Time Status Last Admin Dose Admin Sodium Chloride (Nss 1000ml) 1,000 ml @ 999 mls/hr Q1H1M STAT IV 02/03/17 15:18 02/03/17 16:18 DC 02/03/17 15:18 999 MLS/HR ECG Indication: SOB/dyspnea Rate (beats per minute): 60 Rhythm: sinus with SA Findings: no acute ischemic change, no ectopy Change: no significant change ED Course The patient was seen and examined as above. Her old records were reviewed, specifically her recent hospitalization for . IV lock was initiated. She was hydrated with normal saline solution. She was not orthostatic by vital signs. EKG was as noted above. Laboratory studies were collected including urinalysis, CBC with differential, coags, cardiac enzymes, CMP, TSH and point-of -care d-dimer. Chest x-ray was obtained and was unremarkable. Laboratory studies demonstrated a normal white count at 9000. H&H is 8.1 and 27.2. This is up from 7.5 at discharge from 9 days ago, and upon review of her old records appears to be close to her baseline. Platelet count is normal. PT and INR are unremarkable. [id number] d-dimer was elevated. Electrolytes are without significant abnormality. Liver functions are normal. Cardiac enzymes are negative 1. Urinalysis noted it trace occult blood, and epithelial cells, likely contamination from her lochia. She has no indicators for infection. No protein. Given her elevated d-dimer, CT scan of the chest with IV contrast PE protocol was obtained. There was no pulmonary emboli identified although subsegmental vessels were suboptimally assessed. Trace bilateral pleural effusions with associated subsegmental atelectasis were noted. All laboratory and diagnostic imaging studies were reviewed with attending physician, and discussed with the patient at length. Her symptoms could be multifactorial, possibly related to deconditioning, obesity, post surgical/ state, as well as her anemia. She does not have any convincing evidence for pulmonary embolus by CT, and vital signs are stable. She is not critically anemic which would require transfusion. She was encouraged to rest, drink plenty of fluids, and to follow closely with her primary care provider for further care and evaluation. She expressed understanding of this and was agreeable. She is discharged to home with family in good condition. Differential diagnosis includes acute myocardial infarction, acute coronary syndrome, myocarditis, pericarditis, cardiomyopathy, pulmonary embolism, pneumonia, pneumothorax, congestive heart failure, anemia , COPD/asthma exacerbation, among others. Medical Decision See Emergency Department course. Impression Primary Impression: Shortness of breath in antepartum period Departure Information Referrals Heather Dempsey, (PCP) Patient Instructions [facility] Additional Instructions Rest and drink plenty of fluids as tolerated. Continue current medications. Avoid strenuous activities and anything that worsens your symptoms. Resume normal activities once your symptoms resolve. Return to the ER immediately for worsening or persistent chest pain, abdominal pain, vomiting, fevers, chest pains, difficulty breathing, worsening of your condition , or as needed. Follow up with your primary physician in 2-3 days for a recheck of your current condition. Follow up with [facility] as scheduled.
[2017-02-03 17:57] VITALS: BP 155/91; PULSE 52; TEMP 36.7; O2SAT 100
== END 2017-02-03 17:57 | disposition home or self-care (01) ==
LOC: C.EDB 14:47 → C.EDC 17:57
DX: R06.02 Shortness of breath (principal); D64.9 Anemia, unspecified; Z90.49 Acquired absence of other specified parts of digestive tract; Z98.84 Bariatric surgery status; E66.01 Morbid (severe) obesity due to excess calories; Z68.43 Body mass index [BMI] 50.0-59.9, adult; Z98.51 Tubal ligation status; Z80.9 Family history of malignant neoplasm, unspecified; Z83.3 Family history of diabetes mellitus; Z82.49 Family history of ischemic heart disease and other diseases of the circulatory system; Z87.891 Personal history of nicotine dependence

== ENCOUNTER → 2017-03-08 | Outpatient (CLI) | payer BC ==
[~2017-03-08] MED LIST changes: -SIME80CH
== END | disposition home or self-care (01) ==
LOC: C.PAPS 10:03
PROVIDERS: ATTEND Obstetrics & Gynecology
DX: Z01.419 Encounter for gynecological examination (general) (routine) without abnormal findings (principal)